=== PATIENT | female | born 1970 | race Caucasian/White ===

== ENCOUNTER 2024-05-01 13:57 | Outpatient (AMB) | payer OTHER, SELFPAY ==
--- NOTE | 2024-05-01 14:00 | MHC.PC.OV ---
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) Intake Note: New patient visit Blade Grinder Required: No Allergies Milk Containing Products (Dairy) Allergy (Verified 05/01/24 14:14) oral tingling adhesive bandage Allergy (Unknown, Uncoded 05/01/24 14:14) Unknown Tobacco use date assessed: 05/01/24 Dental Screening Dental Screen Date: 05/01/24 Did you have a dental visit in the last 12 months?: Yes Did you have a dental problem in the last 6 months where you did not have access to dental care?: No Was dental information given to patient?: Patient has dentist HPI HPI Comments History of Present Illness Details This is a 53-year-old female with a past medical history of anemia, hepatic steatosis and hyperlipidemia presenting to [facility] care. She transferred from my panel at [facility]. She got in January up in the [facility]. Her children are doing well. The patient was referred to Gastroenterology in 08/14/2023 when she presented for dysphagia and GERD. She also had a liver ultrasound and lab work including testing for H pylori. She notices improvement of symptoms when she has taken Nexium. She has not been taking it consistently. She drinks 1 glass of wine 5 nights per week. She does not smoke. She denies unexplained weight loss. She had an endoscopy scheduled, but she canceled it because she was transferring to our practice here. She takes NSAIDs, but she does not use them regularly. Her last colonoscopy and endoscopy were in her 30s when she was evaluated for GERD. She has a mammogram scheduled at [facility] in May. She is up to date with gynecological examss. She is snoring and having nonrestorative sleep and has woken herself up feeling like she is choking. Her children can hear her snoring from their bedrooms. She has never a sleep study. She endorses headaches in the morning. She is exercising, and she is trying to follow a low-carbohydrate diet. She mentions menopause today, and she is going to discuss her symptoms related to this with her swim coach. We discussed weight loss medication, GLP 1, but it is deferred today given her pre-existing GI symptoms that need evaluation. The patient saw Cardiology in the past for evaluation of palpitations. Patient says that they did multiple tests including a Holter monitor which came back fine. She stopped taking THC gummies which she had been using for sleep, and she has not had another episode. ROS: Constitutional: No fevers, chills or unexplained weight loss. +fatigue. Respiratory: No shortness of breath, cough or sputum production. Cardiovascular: No chest pain, no pedal edema. Gastrointestinal: No nausea, vomiting, anorexia, blood in stools or diarrhea. No abdominal pain. Genitourinary: No dysuria, hematuria, urinary frequency. Neurologic: No headache, dizziness, syncope Psychiatric: No depression or anxiety. No SI/HI. Physical exam: Constitutional: Alert, in no distress. Ear, Nose and Throat: Canals clear. TMs normal. Normal nasal mucosa. No nasal discharge. No oral lesions. Neck: Supple, Full range of motion. No lymphadenopathy. Respiratory: Clear to auscultation. Cardiovascular: S1 S2 regular. No murmurs. 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 1. Little interest or pleasure in doing things: not at all 2. Feeling down, depressed, or hopeless: not at all 3. Trouble falling or staying asleep, or sleeping too much: several days 4. Feeling tired or having little energy: several days 5. Poor appetite or overeating: not at all 6. Feeling bad about yourself - or that you are a failure or have let yourself or your family down: not at all 7. Trouble concentrating on things, such as reading the newspaper or watching television: not at all 8. Moving or speaking so slowly that other people could have noticed. Or the opposite - being so fidgety or restless that you have been moving around a lot more than usual: not at all 9. Thoughts that you would be better off or of hurting yourself in some way: not at all Total score: 2 Source: Developed by Drs. Marquise Sheppard, Diana Batista, Efraín Augustine and colleagues, with an educational fady from [employer] Thrive Questionnaire Date Thrive assessed: 04/24/24 I am a: Patient What is your living situation today?: I have a steady place to live Within the past 12 months, did the food you bought not last and you didn't have the money to get more?: Never true Within the past 12 months, did you worry whether your food would run out before you got money to buy more?: Never true Do you have trouble paying for medicines?: No Do you have trouble getting transportation to medical appointments?: No Do you have trouble paying your heating and electricity bill?: No Do you have trouble taking care of your child, family member or friend?: No Do you have trouble with day-to-day activities such as bathing, preparing meals, shopping, managing finances, etc.?: No Are you currently unemployed and looking for a job?: No Are you interested in more education?: No Please select the resources that you would like help with: None Currently or been in a relationship where the following occur: No concerns reported THRIVE Score: 0 AUDIT C Alcohol Use Questionnaire (AUDIT-C) 1. How often do you have a drink containing alcohol?: 2-4 times a month 2. How many drinks containing alcohol do you have on a typical day when you are drinking?: 1 or 2 3. How often do you have six or more drinks on one occasion?: Never Total Score: 2 HAILEY-7 AMB Questionnaire HAILEY-7 Feeling nervous, anxious, or on edge: 1 = Several days Not being able to stop or control worryin = Not at all Worrying too much about different things: 0 = Not at all Trouble relaxin = Several days Being so restless that it is hard to sit still: 0 = Not at all Becoming easily annoyed or irritable: 0 = Not at all Feeling afraid as if something awful might happen: 0 = Not at all Total HAILEY-7 score (0-4 normal; 5-9 mild; 10-14 moderate; 15-21 severe): 2 Source: Developed by Drs. Marquise Sheppard, Diana Batista, Efraín Augustine and colleagues, with an educational fady from [employer]. Physical exam (Primary Care) Vital Signs: Last Vital Signs Pulse 67 05/01/24 14:06 BP 122/72 05/01/24 14:06 Pulse Ox 98 05/01/24 14:06 Oxygen Delivery Method Room Air 05/01/24 14:06 BMI result Body Mass Index 29.7 Tobacco/Smoking Status: Tobacco use Status Tobacco use date assessed 05/01/24 05/01/24 14:11 Patient Tobacco Use Status Former Tobacco user 05/01/24 14:11 PHQ-9: PHQ-9 Score PHQ-9: Total score 2 05/01/24 14:11 Thrive Assessment: Date of Thrive Assessment Date Thrive assessed 04/24/24 05/01/24 14:11 Currently or been in a relationship where the following occur: No concerns reported Coding Level of Care Code Est Pt Level 4 (09986) Complex EM visit Add On G2211 Diagnoses Non-restorative sleep G47.8 Dysphagia R13.10 Assessment & Plan Assessment & Plan (1) Non-restorative sleep: Code(s): G47.8 - Other sleep disorders Category: Medical (2) Dysphagia: Code(s): R13.10 - Dysphagia, unspecified Category: Medical Plan Home sleep study ordered for evaluation of possible sleep apnea. Continue efforts at weight loss. She will also trial stopping alcohol. Refer to Gastroenterology. She is overdue for screening colonoscopy and needs to be considered for endoscopy for chronic dysphagia. Symptoms have improved with occasional PPI use. Sent Nexium to take daily. She will have fasting labs completed prior to a physical exam. Orders: Orders RT home sleep study Today G47.8 - Other sleep disorders Lipid Panel Today E78.5 - Hyperlipidemia, unspecified, G47.8 - Other sleep disorders, R13.10 - Dysphagia, unspecified, Z13.6 - Encounter for screening for cardiovascular disorders Comprehensive Met. Panel Today G47.8 - Other sleep disorders, R13.10 - Dysphagia, unspecified, Z13.6 - Encounter for screening for cardiovascular disorders Complete Blood Count no Diff Today G47.8 - Other sleep disorders, R13.10 - Dysphagia, unspecified, Z13.6 - Encounter for screening for cardiovascular disorders TSH reflex Free T4 Today G47.8 - Other sleep disorders, R13.10 - Dysphagia, unspecified, Z13.6 - Encounter for screening for cardiovascular disorders Referrals Gastroenterology Referral R13.10 - Dysphagia, unspecified, Z12.11 - Encounter for screening for malignant neoplasm of colon Medications: New esomeprazole magnesium (Nexium 24HR) 20 mg PO DAILY 90 caps 0RF
[2024-05-01 14:06] VITALS: BP 122/72; PULSE 67; O2SAT 98; BMI 29.7
--- OUTSIDE RECORDS SUMMARY | 2024-05-01 16:18 | XMS_ITS | Continuity of Care Document ---
Author Organization [facility], _[facility] Address [address] [place] [address] Assessment No assessment recorded. Plan of Treatment Reminders Order Date Submit Date Provider Last Modified By Organization Details Last Modified Time Details Appointments None recorded. Lab rapid flu (A+B) 2023 [email or web address] _[facility], [address] [place], [phone], 12:07:10 Referral None recorded. Procedures None recorded. Surgeries None recorded. Imaging None recorded. Medication Orders Flonase Sensimist 27.5 mcg/actuati on nasal spray,suspe nsion 2023 [id number], [address], [id number], 4 12:07:19 albuterol sulfate HFA 90 mcg/actuati on aerosol inhaler 2023 [facility] #[id number], [address], [id number], 4 12:07:19 amoxicillin 875 mg-potassiu m clavulanate 125 mg tablet 2023 [facility] #[id number], [address], [id number], 12:07:19 Diflucan 150 mg tablet 2023 024 [facility] #[id number], [address], [id number], 12:07:18 Patient TargetsNo targets recorded. Patient Instructions Encounter Date Encounter Id Patient Instructions Last Modified By Organization Details Last Modified Time 04/08/2024 [id number] Acute Sinusitis: Care Instructions [email or web address] Not available 04/08/2024 12:07:10 Reason for Referral None Reported. Results Created Date Observation Date Name Description Value Unit Range Abnormal Flag Note LastModifiedBy Organization Detail LastModifiedTime 04/08/2004/08/2024 rapid flu (A+B) Unknown Analyte negati ve Not Available [id number] [place] [address] [address] [place] [address], [phone], 04/08/2024 11:24:14 04/08/20 24 04/08/2024 rapid flu (A+B) Unknown Analyte negati ve Not Available [facility] [address] [place] [address], [phone], 04/08/2024 11:24:14 04/08/20 24 04/08/2024 rapid flu (A+B) Unknown Analyte YES Not Available [id number] [place] [address] [place] [address], [phone], 04/08/2024 11:24:14 Result Notes None recorded. Problems No Known Problems Procedures Surgical History Date Name Laterality Status Provider Name and Address Organization Details Recorded Time 04/26/19 06 Appendectomy completed LARRY HERNANDEZ PA - [facility] 12/15/2022 15:12:36 repair of stress incontinence by suprapubic sling completed LARRY HERNANDEZ PA - [facility] 12/15/2022 15:12:27 removal of ectopic fetus completed LARRY HERNANDEZ PA - [facility] 12/15/2022 15:12:49 Imaging Results None recorded. Procedure Notes None recorded. Medical Equipment None Reported. Allergies No known drug allergies Medications Name Sig Start Date Stop Date Status Note LastModified by Organization Details LastModified Time prednisone 10 mg tablet 04/08 completed Not Available Not Available Not Available prednisone 20 mg tablet TAKE 2 TABLETS BY MOUTH TWICE DAILY FOR 4 DAYS 12/15 completed Not Available Not Available Not Available miconazole nitrate 2 % vaginal cream INSERT 1 APPLICATO RFUL VAGINALLY EVERY DAY FOR 7 DAYS 12/15 completed Not Available Not Available Not Available Diflucan 150 mg tablet 1 po x 1 prn yeast infection 2023 active Not Available Not Available Not Avai lable cephalexin 500 mg capsule TAKE 1 CAPSULE BY MOUTH EVERY 12 HOURS FOR 7 DAYS 12/15 completed Not Available Not Available Not Available ibuprofen 600 mg tablet TAKE 1 TABLET BY MOUTH FOUR TIMES DAILY 04/08 completed Not Available Not Available Not Available albuterol sulfate HFA 90 mcg/actuati on aerosol inhaler Inhale 2 puffs every 4 hours by inhalatio n route as needed. 2023 active Not Available Not Available Not Avai lable amoxicillin 875 mg-potassiu m clavulanate 125 mg tablet Take 1 tablet every 12 hours by oral route as directed for 10 days. 2023 active Not Available Not Available Not Avai lable nitrofurant oin monohydrate /macrocryst als 100 mg capsule TAKE 1 CAPSULE BY MOUTH TWICE DAILY FOR 5 DAYS WITH FOOD 12/15 completed Not Available Not Available Not Available Flonase Sensimist 27.5 mcg/actuati on nasal spray,suspe nsion Take 1 spray every day by nasal route. 2023 active Not Available Not Available Not Avai lable Vitals Date Recorded Body height Body mass index (BMI) Body weight Body temperature Heart rate Oxygen saturation Oxygen saturation in Arterial blood by Pulse oximetry Systolic blood pressure Diastolic blood pressure Systolic blood pressure Diastolic blood pressure Provider Name and Address Organization Details Last Updated DateTime 4 162.56 cm 30 kg/m2 10073.6 6 g 99 [degF] 87 /min 99 % 99 % 143 mm[Hg] 76 mm[Hg] 143 mm[Hg] 82 mm[Hg] Denice BELTRAN - [facility] 4 11:21:11 Social History Question Answer Notes LastModified by Organizat ion Details LastModified Time What Is Your Level Of Alcohol Consumption? Occasional Information not available 04/08/2024 How Many Times Per Week Do You Consume Alcohol? 1-2 Times Per Week Information not available 04/08/2024 Are You Currently Employed? Yes Information not available 04/08/2024 Have You Had A Flu Shot This Season? No Information not available 04/08/2024 If No, Would You Like A Flu Shot Today? No Information not available 04/08/2024 What Is Your Relationship Status? Information not available 04/08/2024 Are You Passively Exposed To Smoke? No Information no t available 04/08/2024 Do You Use Any Illicit Or Recreational Drugs? No Information not available 04/08/2024 Have You Recently Traveled Abroad? No Information not available 04/08/2024 Do You Or Have You Ever Used Any Other Forms Of Tobacco Or Nicotine? No Information not available 04/08/2024 Sex: Unknown Functional Status None recorded. Mental Status None recorded. Family History Relationship Description Onset Age of this Age Resolved Age Notes LastModified by Organization Details LastModified Time Father No current problems or disability [email or web address] Not available 12/15 15:12:12 Mother No current problems or disability [email or web address] Not available 12/15 15:12:12 Medical History No medical history recorded. Gynecological History Statement/Question Response Date of LMP 03/10/2023 LMP Definite Obstetrics History GPAL:G 0 P 0 0 0 0 Past Encounters Encounter ID Performer Location Encounter Start Date Encounter Closed Date Diagnosis/Indication Diagnosis SNOMED-CT Code Diagnosis ICD10 Code Diagnosis [place] [id number] [place] [address] [address] 04/08/2024 10:38:01 04/08/2024 12:13:32 Acute sinusitis 23338804 J01.90 Given Hx and Sx and PE findings will Rx Antibiotic s and nasal spray will give her an albuterol inhaler to use prn cough Take antibiotic with food. Eat a yogurt daily or take a probiotic while taking the antibiotic . Rx diflucan to use prn - has h/o yeast infections Recommend humidified airrest, fluidstyle nol/ibu prn Patient advised to follow up as needed for worsening symptoms or no improvemen t. Discussed concerning red flags with patient and reasons to follow up in the Emergency Department urgently. Health Concerns Section Related Observation LastModified by Organization Detai ls LastModified Time None Recorded Concern Status LastModified by Organization Details LastModified Time None Recorded Payers Encounter Date Sequence Insurance Name Policy Number Policy [place] Covered Member ID Hamilton Member ID Guarantor Name 04/08/2024 1 [facility] Shital Lópezcarmelina [id number] 1 Shital James Carlo Notes Date Note Type Note Provider Name and Address Organization Details Recorded Time 04/08/2024 text/html Sinus Complaints UCReported bypatient.Notes:53 yo f c/o R side face/sinus pressurefever to [address] [place] [address] y aches took home covid test - negative + h/o asthma as a child. n o meds but uses son's albuterol prnnon smoker No nauseaNo vomitingNo wheezeNo difficulty breathing or respiratory distressNo CP+ congestionNo ear painNo sore throatNo Abdominal painNo diarrheaNo fatigueNo rashNo dizzinessNo recent travelNo known sick contacts tried OTC meds w/o relief Jame Barnes, DO [address] [place], [address], PA - [facility] 04/08/2024 12:07:31 OBGyn Episode No OBEpisode recorded.
== END 2024-05-01 14:46 | disposition home or self-care (01) ==
PROVIDERS: PCP Physician Assistant Medical; Visit Provider Physician Assistant Medical
DX: G47.8 Other sleep disorders (principal); R13.10 Dysphagia, unspecified

== ENCOUNTER → 2024-05-01 13:57 | Outpatient (BNVA) | payer OTHER, SELFPAY | PROVIDERS: PCP Physician Assistant Medical; Visit Provider Physician Assistant Medical ==

== ENCOUNTER 2024-07-03 14:06 | Outpatient (AMB) | payer OTHER, SELFPAY ==
[2024-07-03 14:28] VITALS: BP 104/74; PULSE 87; BMI 30.3
--- NOTE | 2024-07-03 14:28 | A.OFFVIS_ITS ---
Vital Signs 07/03/24 14:28 Height 5 ft 4 in Weight 176 lb 5.917 oz BMI 30.3 BP 104/74 Blood Pressure Location Lt brachial Position Sitting Pulse 87 Intake Visit Reasons: Dysphagia Intake Note: Shital presents in the office as a new patient for dysphagia. CC: She states that she takes a fiber powder with a ground garden of ifeoma and she states that keeps her normal. Issues with swallowing she does not feel like anything is stuck but she states that it happens random and not always when she is eating. She states it will sometimes happen with food but mostly out of nowhere. Commercial Agent Required: No Allergies Milk Containing Products (Dairy) Allergy (Verified 07/03/24 14:28) oral tingling adhesive bandage Allergy (Unknown, Uncoded 07/03/24 14:28) Unknown HPI Comments Details: 53 y.o F with PMH of diverticulitis who is here for dysphagia. Reports started almost a year ago - can occur with any foods even saliva. Makes an effort to swallow but food feels stuck or very slow to go down. No N/V. No unintentional weight loss. No regurgitation. Sometimes has to induce vomiting when food does not go down. Has hx of seasonal allergies and eczema. Barium swallow 05/2023 at [facility] [place]: small hiatal hernia. No reflux. Pt also with hx of acute diverticulitis 2 years ago at [facility]. Was recommended a follow up colo which pt never got around to doing it. No fam hx of colorectal ca. 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 Current occupational exposures/hazards: No Cognitive needs: No Hearing needs: No Vision needs: No Review of Systems Const All systems reviewed & are unremarkable except as noted in HPI and below Physical Exam Vital Signs: Last Vital Signs Pulse 87 07/03/24 14:28 BP 104/74 07/03/24 14:28 BMI result Body Mass Index 30.3 No apparent distress Nonicteric Abdomen soft, nondistended Alert and oriented x3, normal gait Assessment & Plan Assessment & Plan (1) Dysphagia: Code(s): R13.10 - Dysphagia, unspecified Category: Medical (2) Screening for malignant neoplasm of colon: Code(s): Z12.11 - Encounter for screening for malignant neoplasm of colon Category: Medical Plan 1. Dysphagia: DDx includes esophageal web/stricture, EoE, dysmotility. Plan: - EGD to be booked - OK to cont nexium for now - Reviewed instructions to cut up food in small pieces and chew thoroughly 2. CRC screening: Will be set up at the same time as egd. Plan: - PEG prep Rxed and instructions reviewed Follow up after procedures Orders: Orders FL barium swallow Today R13.10 - Dysphagia, unspecified Medications: New peg 3350-electrolytes 236-22.74-6.74 -5.86 gram (Golytely) as per split prep instructions, until fecal effluent is clear 240 mL PO Q10M 4,000 mL 0RF colonoscopy Refilled esomeprazole magnesium (Nexium 24HR) 20 mg PO DAILY 90 caps 0RF Coding Level of Care Code New Pt Level 4 (47913) Diagnoses Dysphagia R13.10 Screening for malignant neoplasm of colon Z12.11
--- OUTSIDE RECORDS SUMMARY | 2024-07-03 16:04 | XMS_ITS | Data Portability ---
Author Organization [facility], [address] Address [address] [place] [address] Assessment No assessment recorded. Plan of Treatment Reminders Order Date Submit Date Provider Last Modified By Organization Details Last Modified Time Details Appointments None recorded. Lab rapid flu (A+B) 2023 024 [email or web address] [facility], [address] [place], [address], 4 12:07:10 rapid strep group A, throat 2022 023 [email or web address] [facility], [address] [place], [address], 3 15:29:28 streptococc us group A, culture, throat 2022 023 [place] [facility], [address] [place] [address], [place], [address], 3 12:06:34 Referral None recorded. Procedures None recorded. Surgeries None recorded. Imaging None recorded. Medication Orders Flonase Sensimist 27.5 mcg/actuati on nasal spray,suspe nsion 2023 024 [id number], [address] [place] [address], [id number], 4 12:07:19 albuterol sulfate HFA 90 mcg/actuati on aerosol inhaler 2023 024 [facility] #[id number], [address] [facility], [facility] [address], [place], [place], [id number], 4 12:07:19 amoxicillin 875 mg-potassiu m clavulanate 125 mg tablet 2023 024 [facility] #55340, [address] [facility] [address], [place], [place], [id number], 4 12:07:19 Diflucan 150 mg tablet 2023 024 [facility] #24655, [address] [facility] [address], [place], [place], [id number], 4 12:07:18 amoxicillin 875 mg-potassiu m clavulanate 125 mg tablet 2022 023 [facility] #[id number], [address] [facility] [address], [place], [place], [id number], 11:21:34 Patient TargetsNo targets recorded. Patient Instructions Encounter Date Encounter Id Patient Instructions Last Modified By Organization Details Last Modified Time 12/15/2022 [id number] ear infection (otitis media): care instructions Not available 12/15/2022 15:30:17 sore throat: car e instructions Not available 12/15/2022 15:29:27 04/08/2024 [id number] Acute Sinusitis: Care Instructions [email or web address] Not available 04/08/2024 12:07:10 Reason for Referral None Reported. Results Created Date Observation Date Name Description Value Unit Range Abnormal Flag Note LastModifiedBy Organization Detail LastModifiedTime 12/16/1912/18/2022 BETA STREP GP A CULTU RE beta strep gp A culture NEGATI VE Refer ence Range : Negat darlene Not Available [facility] ([facility]) [address] [facility], [place], [address], 12/18/2022 12:06:34 12/16/19 23 12/15/2022 rapid strep group A, throa t Unknown Analyte negati ve Not Available [facility] [address] [place] [address], [phone], 12/15/2022 15:13:07 04/08/20 24 04/08/2024 rapid flu (A+B) Unknown Analyte negati ve Not Available [facility] [address] [address] [place] [address], [phone], 04/08/2024 11:24:14 04/08/20 24 04/08/2024 rapid flu (A+B) Unknown Analyte negati ve Not Available [facility] [address] [place] [address], [phone], 04/08/2024 11:24:14 04/08/20 24 04/08/2024 rapid flu (A+B) Unknown Analyte YES Not Available [facility] [address] [place] [address], [phone], 04/08/2024 11:24:14 Result Notes None recorded. Problems No Known Problems Procedures Surgical History Date Name Laterality Status Provider Name and Address Organization Details Recorded Time 04/26/19 06 Appendectomy completed [facility] - [facility] 12/15/2022 15:12:36 repair of stress incontinence by suprapubic sling completed [facility] - [facility] 12/15/2022 15:12:27 removal of ectopic fetus completed [facility] - [facility] 12/15/2022 15:12:49 Imaging [...] height Body mass index (BMI) Body weight Oxygen saturation Oxygen saturation in Arterial blood by Pulse oximetry Heart rate Respiratory rate Body temperature Systolic blood pressure Diastolic blood pressure Provider Name and Address Organization Details Last Updated DateTime 3 162.56 cm 27.5 kg/m2 13218.7 8 g 99 % 99 % 77 /min 19 /min 98.5 [degF] 124 mm[Hg] 80 mm[Hg] LARRY HERNANDEZ PA - [facility] 3 15:11:31 Date Recorded Body height Body mass index (BMI) Body weight Body temperature Heart rate Oxygen saturation Oxygen saturation in Arterial blood by Pulse oximetry Systolic blood pressure Diastolic blood pressure Systolic blood pressure Diastolic blood pressure Provider Name and Address Organization Details Last Updated DateTime 4 162.56 cm 30 kg/m2 27984.6 6 g 99 [degF] 87 /min 99 % 99 % 143 mm[Hg] 76 mm[Hg] 143 mm[Hg] 82 mm[Hg] Denice Valdez PA - [facility] 11:21:11 Social History Question Answer Notes LastModified [...] SNOMED-CT Code Diagnosis ICD10 Code Diagnosis Note [email or web address] [address] 08/06/2018 13:48:14 08/06/2018 16:00:50 [id number] Rosanna Murray NP [id number] [address] 12/15/2022 14:53:20 12/15/2022 15:37:32 Acute pharyngitis [id number] J02.9 Based on your Presentati on, Exam, and Lab Testing you are being diagnosed with Pharyngiti s. Your Rapid Strep Test was Negative. Most likely your sore throat is being caused by a virus, post nasal drip, or silent acid reflux. I am going to send a Throat Culture to the lab for you to make sure you don't have a different form of strep in your throat. This will take about 72 hours for that result to return. We will contact you if it positive - if for some reason you don't get a copy of your results or hear from us - please contact our office. I am going to prescribe you and antibiotic to cover this infection. Please be sure to complete the full course of this antibiotic to prevent antibiotic resistance . It is also important to complete this antibiotic because this infection is what causes Scarlet Fever/Rheu matic Heart Disease. Antibiotic s will typically take 4-5 days to start to work with symptom improvemen t. The following are my other recommenda tions to help with symptoms and is important for this diagnosis: 1. Do not share any food or drinks - strep is passed through direct saliva exchange (NOT IN THE AIR)2. Change your toothbrush in 3-4 days so that you don't re-infect yourself after you complete the antibiotic .3. Take Ibuprofen or Tylenol if you do not have any allergies to these medication s. If you take a blood thinner you should not take NSAIDS like Ibuprofen. These medication will help with the inflammati on in your respirator y tract which should help the cough. (I would alternate between Tylenol 650 mg and your Ibuprofen 600 mg every 4 hours)4. Do not take any Cold Medication s that have a Decongesta nt in it - this will dry out your throat and make the sore throat worse.5. Drinking Hot Tea with honey can help coat and soothe your throat.6. You would be considered contagious for the next 24-48 hours, or until fever resolves. I would be seen again if you develop any of the following symptoms.1 . Fever > 101.02. Stiff neck - where you can't turn your neck3. Trouble swallowing your saliva - drooling4. Swelling of a lymph node in your throat that is painful to touch5. Difficulty breathing6 . Severe Headache Thank you for using [facility] today, please feel free to contact our office if you have any questions or concerns. Acute otitis media 95997 03 H66.93 Acute bila teral otitis media [id number] H66.93 Based on your Presentati on, Exam, and Lab Testing you are being diagnosed with otitis media I am going to prescribe you and antibiotic to cover this infection. Please be sure to complete the full course of this antibiotic to prevent antibiotic resistance . It is also important to complete this antibiotic because this infection is what causes Scarlet Fever/Rheu matic Heart Disease. Antibiotic s will typically take 4-5 days to start to work with symptom improvemen t. The following are my other recommenda tions to help with symptoms and is important for this diagnosis: 1. Take Ibuprofen or Tylenol if you do not have any allergies to these medication s. If you take a blood thinner you should not take NSAIDS like Ibuprofen. These medication will help with the inflammati on in your respirator y tract which should help the cough. (I would alternate between Tylenol 650 mg and your Ibuprofen 600 mg every 4 hours)2. Do not take any Cold Medication s that have a Decongesta nt in it - this will dry out your throat and make the sore throat worse.3. Drinking Hot Tea with honey can help coat and soothe your throat. I would be seen again if you develop any of the following symptoms.1 . Fever > 101.02. Stiff neck - where you can't turn your neck3. Trouble swallowing your saliva - drooling4. Swelling of a lymph node in your throat that is painful to touch5. Difficulty breathing6 . Severe Headache Thank you for using [facility] today, please feel free to contact our office if you have any questions or concerns. [id number] Jame Barnes DO [address] [address] 04/08/2024 10:38:01 04/08/2024 12:13:32 Acute sinusitis [id number] J01.90 Given Hx and Sx and PE [...] by Organization Details LastModified Time None Recorded Advance Directives Directive None Recorded Payers Encounter Date Sequence Insurance Name Policy Number Policy [place] Covered Member ID Hamilton Member ID Guarantor Name 08/06/2018 1 [id number] Shital James Carlo [id number] Shital Galvezasseur 12/15/2022 1 [facility] [id number] Shital Ramirez Carlo [id number] Shital Ramirez Carlo 04/08/2024 1 [facility] Shital Pierre [id number] Shital Matos Notes Date Note Type Note Provider Name and Address Organization Details Recorded Time 3 text/html Sore throatReported bypatient.Source of patient informationInformation obtained from patient; Patient arrived at Urgent Care ambulatory Location:throat Severity:moderate Quality:hurts to swallow Onset/Timin days Associated Symptoms:no cough; no sputum production; no shortness of breath; no wheezing; no sinus pain; no vomiting; no nausea;hoarseness Context:no foreign travel; non-smoker;sick contact Modifying Factors:OTC medicationNotes:sore thoat x3 days pt states roof of mouth feels sore, has been swimming in river the past week , left ear pain as well Rosanna Murray NP [address] [place], [address], [place] - [facility] 12/15/2022 15:36:47 4 text/html Sinus Complaints UCReported bypatient.Notes:53 yo f c/o R side face/sinus pressurefever to 101chillsHAcoughbody aches took home covid test - negative + h/o asthma as a child. n o meds but uses son's albuterol prnnon smoker No nauseaNo vomitingNo wheezeNo difficulty breathing or respiratory distressNo CP+ congestionNo ear painNo sore throatNo Abdominal painNo diarrheaNo fatigueNo rashNo dizzinessNo recent travelNo known sick contacts tried OTC meds w/o relief Jame Barnes, DO [address], [place], [address], [place] - [facility] 04/08/2024 12:07:31 OBGyn Episode No OBEpisode recorded.
--- OUTSIDE RECORDS SUMMARY | 2024-07-03 16:04 | XMS_ITS | Clinical Summary ---
Author Organization [facility] Address [address] [place] [address] Care Team Providers Care Content Strategist Name Role Phone Unavailable Primary Care Provider Unavailabl e Social History Tobacco Use Types Packs/Day Years Used Date Smoking Tobacco: Never Assessed Sex and Gender Information Value Date Recorded Sex Assigned at Not on file Gender Identity Not on file Sexual Orientation Not on file Plan of Treatment Health Maintenance Due Date Last Done Comments Hepatitis C Virus Screening 1970 HIV Screening 11/23/1984 DTaP/Tdap/Td Vaccines (1 - Tdap) 11/23/1990 Hepatitis B Vaccines (1 of 3 - 19+ 3-dose series) 11/23/1990 Pneumococcal Vaccines 50+ (1 of 1 - PCV) 11/23/2021 Zoster (Shingles) Vaccine (1 of 2) 11/23/2021 COVID-19 Vaccine ( - 2023-2 5 season) 2023 Pneumococcal Vaccine: Pediat aileen (0-5 Years) and At-Risk Patients (6 to 49 Years) Aged Out No longer eligible b ased on patient's age to complete this topic
== END 2024-07-04 08:59 | disposition home or self-care (01) ==
PROVIDERS: PCP Physician Assistant Medical; Visit Provider Internal Medicine
DX: R13.10 Dysphagia, unspecified (principal); Z12.11 Encounter for screening for malignant neoplasm of colon
CPT/HCPCS: 99204

== ENCOUNTER → 2024-07-03 14:06 | Outpatient (BNVA) | payer OTHER, SELFPAY | PROVIDERS: PCP Physician Assistant Medical; Visit Provider Internal Medicine ==

== ENCOUNTER 2024-07-13 09:06 | Outpatient (REF) | payer OTHER, SELFPAY ==
--- NOTE | ~2024-07-13 | XR_ITS ---
EXAMINATION: XR CERVICAL SPINE CLINICAL INFORMATION: M54.12 - Radiculopathy, cervical region COMPARISON: None available. TECHNIQUE: 6 views of the cervical spine, inclusive of flexion and extension views, were obtained. FINDINGS: Craniocervical junction is intact. Marginal osteophyte formation and endplate sclerosis decreased intervertebral disc height, C5-6 and C6-7 levels. Grade 1 anterolisthesis C3-4 and C4-5 levels. Grade 1 retrolisthesis C5-6 level. Reverse curvature apex at C5-6. Bilateral neural neuroforamina stenosis secondary to marginal osteophyte formation at C5-6. Upper airways patent. No lytic or blastic lesions. XR/XR cervical spine 5V IMPRESSION: Multilevel spondylosis C5-6 and C6-7 levels resulting in bilateral neuroforamina stenosis and C5-6 and reverse curvature. Electronically signed by: Yves Morales MD 07/17/2024 08:29 AM EDT
== END 2024-07-13 09:07 | disposition home or self-care (01) ==
LOC: HO.XRAY 09:06
PROVIDERS: PCP Physician Assistant Medical; Visit Provider Physician Assistant Medical
DX: M54.12 Radiculopathy, cervical region (principal); R29.898 Other symptoms and signs involving the musculoskeletal system
CPT/HCPCS: 72050

== ENCOUNTER 2024-07-13 09:06 | Outpatient (AMB) | payer OTHER, SELFPAY ==
--- NOTE | 2024-07-13 09:09 | A.OFFPC_ITS ---
Vital Signs 07/13/24 09:11 Height 5 ft 4 in Weight 180 lb 4 oz BMI 30.9 BP 102/80 Blood Pressure Location Lt brachial Position Sitting Respiration 12 Pulse 82 Pulse Source Pulse Oximeter Pulse Oximetry (%) 99 Oxygen Delivery Method Room Air Intake Visit Reasons: need new referral chiropractic not helping Intake Note: Referral for neck and back pain, pain left arm going down to the hand. Event Set Up Specialist Required: No Allergies Milk Containing Products (Dairy) Allergy (Verified 07/13/24 09:11) oral tingling adhesive bandage Allergy (Unknown, Uncoded 07/13/24 09:11) Unknown Tobacco use date assessed: 07/13/24 Dental Screening Dental Screen Date: 05/01/24 HPI HPI Comments History of Present Illness Details This is a 53-year-old female with a past medical history of anemia, hepatic steatosis and hyperlipidemia presenting for neck pain. Her symptoms began 2-1/2 months ago. She developed pain on the left side of her neck that radiated down to her forearm and hand. It was associated with numbness in her left 3rd finger as well as tension in her neck muscles. She s tarted treatment with Advil 800 mg every 6-8 hours, ice and heat and stretching, and she has continued to take this for the past 6 or 7 weeks. She then started to see a chiropractor, and she has been going 3 times per week. She has also been doing stretches at home at the direction of the chiropractor. She continues with symptoms. Her pain ranges from mild to moderate. It is currently a 4/10. She continues to have numbness and tingling, but now it also affects the 1st 2nd and 3rd fingers of the left hand. She has difficulty buttoning her shirts. Patient denies specific injury, but she was doing a lot of planking exercises as part of her normal routine leading up to this. She has trouble trying to bend her neck down. ROS: Constitutional: No unexplained weight loss, fever, chills or night sweats. Eyes: No vision changes, blurry vision, double vision, eye pain, eye redness, eye discharge. Respiratory: No shortness of breath Cardiovascular: No chest pain, chest pressure or chest discomfort Neurologic: No headache, dizziness, syncope or tremor Musculoskeletal: See HPI Skin: No rash or swelling Physical exam: Constitutional: Alert, in no distress.. Eyes: Pupils are equal, round and reactive to light. Extraocular muscles intact. Respiratory: Clear to auscultation. Cardiovascular: S1 S2 regular. No murmurs. Neurologic: Moves all extremities spontaneously Musculoskeletal: Tender C6-7 midline spine and left upper trap and left paraspinal muscles. Left upper trap muscles firm to palpation. Left hand assessment expert 4/5 compared to 5/5 on the right. Otherwise left upper extremity strength is 5/5 bilaterally. Full range of motion of the upper extremities. Patient has decreased range of motion with flexion and extension movements of the cervical spine. They are also painful for the patient to perform. Extremities: Warm and well perfused. No clubbing, cyanosis or edema. 3+ radial pulses bilaterally. Psychiatric: Normal mood and affect [facility] Medical History (Updated 07/13/24 @ 09:32 by RUBY Villanueva) Weakness of left hand Cervical radiculopathy Morning headache Snoring Non-restorative sleep Screening for malignant neoplasm of colon Dysphagia Surgical History (Updated 07/03/24 @ 14:29 by THIEN Mendez) Hx of colonoscopy History of esophagogastroduodenoscopy (EGD) Social History Housing: House Patient Tobacco Use Status: Former Tobacco user Years Smoked: college years Second Hand Smoke Exposure: No service: No Current occupational status: employed 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 Current occupational exposures/hazards: No Cognitive needs: No Hearing needs: No Vision needs: No Questionnaire Thrive Questionnaire Date Thrive assessed: 05/01/24 I am a: Patient What is your living situation today?: I have a steady place to live Within the past 12 months, did the food you bought not last and you didn't have the money to get more?: Never true Within the past 12 months, did you worry whether your food would run out before you got money to buy more?: Never true Do you have trouble paying for medicines?: No Do you have trouble getting transportation to medical appointments?: No Do you have trouble paying your heating and electricity bill?: No Do you have trouble taking care of your child, family member or friend?: No Do you have trouble with day-to-day activities such as bathing, preparing meals, shopping, managing finances, etc.?: No Are you currently unemployed and looking for a job?: No Are you interested in more education?: No Please select the resources that you would like help with: None Currently or been in a relationship where the following occur: No concerns reported THRIVE Score: 0 Physical exam (Primary Care) Vital Signs: Last Vital Signs Pulse 82 07/13/24 09:11 Resp 12 07/13/24 09:11 BP 102/80 07/13/24 09:11 Pulse Ox 99 07/13/24 09:11 Oxygen Delivery Method Room Air 07/13/24 09:11 BMI result Body Mass Index 30.9 Tobacco/Smoking Status: Tobacco use Status Tobacco use date assessed 07/13/24 07/13/24 09:14 Patient Tobacco Use Status Former Tobacco user 07/13/24 09:14 Thrive Assessment: Date of Thrive Assessment Date Thrive assessed 05/01/24 07/13/24 09:14 Currently or been in a relationship where the following occur: No concerns re ported Coding Level of Care Code Est Pt Level 4 (36402) Complex EM visit Add On G2211 Diagnoses Cervical radiculopathy M54.12 Weakness of left hand R29.898 Assessment & Plan Assessment & Plan (1) Cervical radiculopathy: Code(s): M54.12 - Radiculopathy, cervical region Category: Medical (2) Weakness of left hand: Code(s): R29.898 - Other symptoms and signs involving the musculoskeletal system Category: Medical Plan Patient has continued pain and radiculopathy despite more than 6 weeks of conservative management including treatment with NSAID, heat, ice, stretching and seeing the chiropractor. I am concerned that she may have nerve compression from a herniated disc or bone spur. Ordered x-ray and MRI of the cervical spine for further evaluation. Patient does not want any medications that make her drowsy. She will try meloxicam 15 mg daily as needed with food. Avoid other NSAIDs. She can take Tylenol 500 to a 1000 mg 3 times a day as needed for pain. Follow up will be determined based on test results. Orders: Orders MR cervical spine wo con Today M54.12 - Radiculopathy, cervical region, R29.898 - Other symptoms and signs involving the musculoskeletal system XR cervical spine 5V Today M54.12 - Radiculopathy, cervical region, R29.898 - Other symptoms and signs involving the musculoskeletal system Medications: New meloxicam 15 mg PO DAILY PRN 30 tabs 0RF pain
[2024-07-13 09:11] VITALS: BP 102/80; PULSE 82; RESP 12; O2SAT 99; BMI 30.9
--- OUTSIDE RECORDS SUMMARY | 2024-07-13 09:42 | XMS_ITS | Data Portability ---
Author Organization [facility], [address] Address [address] [place] [address] Assessment No assessment recorded. Plan of Treatment Reminders Order Date Submit Date Provider Last Modified By Organization Details Last Modified Time Details Appointments None recorded. Lab rapid flu (A+B) [email or web address], [address] [place], [address], 4 12:07:10 rapid strep group A, throat 2022 [email or web address] _[facility], [address] [place], [address], 3 15:29:28 streptococc us group A, culture, throat 2022 023 [place] [facility], [address] [place] [address], [place], [address], 3 12:06:34 Referral None recorded. Procedures None recorded. Surgeries None recorded. Imaging None recorded. Medication Orders Flonase Sensimist 27.5 mcg/actuati on nasal spray,suspe nsion 2023 024 [facility]15881, [address] [place] [address], [id number], 4 12:07:19 albuterol sulfate HFA 90 mcg/actuati on aerosol inhaler 2023 024 [facility] #76561, [address] [facility], [facility] 1, [place], [place], [phone], 4 12:07:19 amoxicillin 875 mg-potassiu m clavulanate 125 mg tablet 2023 024 [facility] #39902, [address] [facility] 1, [place], [place], [id number], 4 12:07:19 Diflucan 150 mg tablet 2023 024 [facility] #85602, [address] [facility] 1, [place], [place], [id number], 4 12:07:18 amoxicillin 875 mg-potassiu m clavulanate 125 mg tablet 2022 023 [facility] #46750, [address] [facility] 1, [place], [place], [id number], 11:21:34 Patient TargetsNo targets recorded. Patient Instructions Encounter Date Encounter Id Patient Instructions Last Modified By Organization Details Last Modified Time 12/15/2022 [id number] ear infection (otitis media): care instructions Not available 12/15/2022 15:30:17 sore throat: car e instructions Not available 12/15/2022 15:29:27 04/08/2024 [id number] Acute Sinusitis: Care Instructions [email or web address] Not available 04/08/2024 12:07:10 Reason for Referral None Reported. Results Created Date Observation Date Name Description Value Unit Range Abnormal Flag Note LastModifiedBy Organization Detail LastModifiedTime 12/16/1912/18/2022 BETA STREP GP A CULTU RE beta strep gp A culture NEGATI VE Refer ence Range : Negat darlene Not Available [facility] ([facility]) [address] [facility], [place], [address], 12/18/2022 12:06:34 12/16/19 23 12/15/2022 rapid strep group A, throa t Unknown Analyte negati ve Not Available [facility] [address] [place] [address], [address], 12/15/2022 15:13:07 04/08/20 24 04/08/2024 rapid flu (A+B) Unknown Analyte negati ve Not Available [facility] [address] [place] [address], [address], 04/08/2024 11:24:14 04/08/20 24 04/08/2024 rapid flu (A+B) Unknown Analyte negati ve Not Available [facility] [address] [place] [address], [address], 04/08/2024 11:24:14 04/08/20 24 04/08/2024 rapid flu (A+B) Unknown Analyte YES Not Available [facility] [address] [place] [address], [phone], 04/08/2024 11:24:14 Result Notes None recorded. Problems No Known Problems Procedures Surgical History Date Name Laterality Status Provider Name and Address Organization Details Recorded Time 04/26/19 06 Appendectomy completed [place] PA - [facility] 12/15/2022 15:12:36 repair of stress incontinence by suprapubic sling completed [place] PA - [facility] 12/15/2022 15:12:27 removal of ectopic fetus completed [place] PA - [facility] 12/15/2022 15:12:49 Imaging [...] Updated DateTime 3 162.56 cm 27.5 kg/m2 10769.7 8 g 99 % 99 % 77 [...] Updated DateTime 4 162.56 cm 30 kg/m2 64511.6 6 g 99 [degF] 87 /min 99 [...] SNOMED-CT Code Diagnosis ICD10 Code Diagnosis Note [id number] [address] [address] 08/06/2018 13:48:14 08/06/2018 16:00:50 [id number] Rosanna Murray [place] [address] [address] 12/15/2022 14:53:20 12/15/2022 15:37:32 Acute pharyngitis [id number] J02.9 Based on your Presentati on, Exam, [...] any questions or concerns. Acute otitis media 44255 03 H66.93 Acute bila teral otitis media 679928288 H66.93 Based on your Presentati on, Exam, [...] if you have any questions or concerns. [id number] [place] [address] [address] 04/08/2024 10:38:01 04/08/2024 12:13:32 Acute sinusitis [id number] J01.90 Given Hx and Sx and PE [...] Hamilton Member ID Guarantor Name 08/06/2018 1 [id number] Shital James Carlo [id number] Shital Galvezasseur 12/15/2022 1 [facility] [id number] Shital Ramirez Carlo [id number] Shital Ramirez Carlo 04/08/2024 1 [facility] Shital Pierre [id number] Shital Matos Notes Date Note Type Note [...] Murray NP [address] [place], [address], [place] - [facility] 12/15/2022 15:36:47 4 [...] Jame Barnes, DO [address], [place], [address], [place] - [facility] 04/08/2024 12:07:31 OBGyn Episode No OBEpisode recorded.
--- OUTSIDE RECORDS SUMMARY | 2024-07-13 09:42 | XMS_ITS | Clinical Summary ---
Author Organization [facility] Address [address] [place] [address] Care Team Providers Care Machine Shop Specialist Name Role Phone Unavailable Primary Care Provider [...]
== END 2024-07-13 10:36 | disposition home or self-care (01) ==
LOC: HO.HMCFM 09:07
PROVIDERS: PCP Physician Assistant Medical; Visit Provider Physician Assistant Medical
DX: M54.12 Radiculopathy, cervical region (principal); R29.898 Other symptoms and signs involving the musculoskeletal system

== ENCOUNTER → 2024-07-13 13:27 | Outpatient (BNV) | payer OTHER, SELFPAY | PROVIDERS: PCP Physician Assistant Medical; Visit Provider Radiology Diagnostic Radiology | DX: M54.12 Radiculopathy, cervical region (principal) | CPT/HCPCS: 72050 ==

== ENCOUNTER 2024-07-29 10:36 | Outpatient (REF) | payer OTHER, SELFPAY ==
--- OUTSIDE RECORDS SUMMARY | 2024-07-29 10:38 | XMS_ITS | Clinical Summary ---
Author Organization [facility] Address [address] [place] [address] Care Team Providers Care Lining Cleaner Name Role Phone Unavailable Primary Care Provider [...]
--- OUTSIDE RECORDS SUMMARY | 2024-07-29 10:38 | XMS_ITS | Data Portability ---
Author Organization [facility], [address] Address [address] [place] [address] Assessment No assessment recorded. Plan of Treatment Reminders Order Date Submit Date Provider Last Modified By Organization Details Last Modified Time Details Appointments None recorded. Lab rapid flu (A+B) 2023 024 [email or web address] _[facility], [address] [place], [address], 4 12:07:10 rapid strep group A, throat 2022 023 [email or web address] _[facility], [address] [place], [address], 3 15:29:28 streptococc us group A, culture, throat 2022 023 [place] [facility], [address] [place] [address], [place], [address], 3 12:06:34 Referral None recorded. Procedures None recorded. Surgeries None recorded. Imaging None recorded. Medication Orders Flonase Sensimist 27.5 mcg/actuati on nasal spray,suspe nsion 2023 024 [facility] #27242, [address] [place] [address], [id number], 4 12:07:19 albuterol sulfate HFA 90 mcg/actuati on aerosol inhaler 2023 024 [facility] #31524, [address] [facility], [facility] 1, [place], [place], [id number], 4 12:07:19 amoxicillin 875 mg-potassiu m clavulanate 125 mg tablet 2023 024 [facility] #59632, [address] [facility] 1, [place], [place], [id number], 4 12:07:19 Diflucan 150 mg tablet 2023 024 [facility] #62003, [address] [facility] 1, [place], [place], [id number], 4 12:07:18 amoxicillin 875 mg-potassiu m clavulanate 125 mg tablet 2022 023 [facility] #14948, [address] [facility] 1, [place], [place], [id number], 11:21:34 Patient TargetsNo targets recorded. Patient Instructions Encounter Date Encounter Id Patient Instructions Last Modified By Organization Details Last Modified Time 12/15/2022 [id number] ear infection (otitis media): care instructions Not available 12/15/2022 15:30:17 sore throat: car e instructions Not available 12/15/2022 15:29:27 04/08/2024 [id number] Acute Sinusitis: Care Instructions [email or web address] Not available 04/08/2024 12:07:10 Reason for Referral None Reported. Results Created Date Observation Date Name Description Value Unit Range Abnormal Flag Note LastModifiedBy Organization Detail LastModifiedTime 12/16/1912/18/2022 BETA STREP GP A CULTU RE beta strep gp A culture NEGATI VE Refer ence Range : Negat darlene Not Available [facility] ([facility]) [address] [facility], [place], [address], 12/18/2022 12:06:34 12/16/19 23 12/15/2022 rapid strep group A, throa t Unknown Analyte negati ve Not Available [facility] [address] [place] [address], [address], 12/15/2022 15:13:07 04/08/20 24 04/08/2024 rapid flu (A+B) Unknown Analyte negati ve Not Available [facility] [address] [place] [address], [address], 04/08/2024 11:24:14 04/08/20 24 04/08/2024 rapid flu (A+B) Unknown Analyte negati ve Not Available [facility] [address] [place] [address], [address], 04/08/2024 11:24:14 04/08/20 24 04/08/2024 rapid flu (A+B) Unknown Analyte YES Not Available [facility] [address] [place] [address], [phone], 04/08/2024 11:24:14 Result Notes None recorded. Problems No Known Problems Procedures Surgical History Date Name Laterality Status Provider Name and Address Organization Details Recorded Time 04/26/19 06 Appendectomy completed [employer] PA - [facility] 12/15/2022 15:12:36 repair of stress incontinence by suprapubic sling completed [employer] PA - [facility] 12/15/2022 15:12:27 removal of ectopic fetus completed [employer] PA - [facility] 12/15/2022 15:12:49 Imaging [...] Updated DateTime 3 162.56 cm 27.5 kg/m2 44977.7 8 g 99 % 99 % 77 [...] Updated DateTime 4 162.56 cm 30 kg/m2 73597.6 6 g 99 [degF] 87 /min 99 [...] SNOMED-CT Code Diagnosis ICD10 Code Diagnosis Note [id number] [address] [address] 08/06/2018 13:48:14 08/06/2018 16:00:50 [id number] Rosanna Murray NP [address] [address] 12/15/2022 14:53:20 12/15/2022 15:37:32 Acute pharyngitis 108388782 J02.9 Based on your Presentati on, Exam, [...] any questions or concerns. Acute otitis media 36793 03 H66.93 Acute bila teral otitis media 500474504 H66.93 Based on your Presentati on, Exam, [...] if you have any questions or concerns. [id number] [place] [address] [address] 04/08/2024 10:38:01 04/08/2024 12:13:32 Acute sinusitis [id number] J01.90 Given Hx and Sx and PE [...] ID Guarantor Name 08/06/2018 1 [id number] Shital James Carlo [id number] Shital Galvezasseur 12/15/2022 1 [facility] [id number] Shital Ramirez Carlo [id number] Shital Ramirez Carlo 04/08/2024 1 [facility] Shital Pierre [id number] Shital Matos Notes Date Note Type Note [...] Murray NP [address] [place], [address], [place] - [facility] 12/15/2022 15:36:47 4 [...] Jame Barnes, DO [address], [place], [address], [place] - [facility] 04/08/2024 12:07:31 OBGyn Episode No OBEpisode recorded.
[2024-07-29 11:13] LABS: Hematocrit 38.2 % (37.0-47.0); Hemoglobin 13.3 g/dl (12.0-16.0); Mean Corpuscular HGB Conc 34.8 g/dl (31.0-35.0); Mean Corpuscular Hemoglobin 31.1 pg (27.0-33.0); Mean Corpuscular Volume 89.5 fL (80.0-98.0); Mean Platelet Volume 9.9 fL (9.4-12.3); Platelet Count 275 X10*3/uL (160-400); Red Blood Count 4.27 X10*6/uL (4.20-5.50); Red Cell Distribution Width 12.2 % (11.0-16.0); White Blood Count 11.8 X10*3/uL (4.8-10.8)
[2024-07-29 11:56] LABS: Alanine Aminotransferase 15 U/L (0-31); Albumin Level 4.1 g/dL (3.5-5.0); Alkaline Phosphatase 64 U/L (39-117); Anion Gap 10 (12-20); Aspartate Amino Transferase 21 U/L (5-31); Bilirubin Total 0.6 mg/dL (0.0-1.0); Blood Urea Nitrogen 12 mg/dL (9-16); Calcium 9.3 mg/dL (8.4-10.2); Carbon Dioxide 27 mmol/L (22-29); Chloride 106 mmol/L (96-108); Cholesterol 201 mg/dL (<200); Estimated Glomerular Filt Rate > 60; Glucose Random 103 mg/dL (60-115); HDL Cholesterol 48 mg/dL (>40); LDL Cholesterol Calculated 125 mg/dL (<100); Potassium 4.9 mmol/L (3.3-5.1); Sodium 138 mmol/L (135-145); Total Protein 7.1 g/dL (6.5-8.0); Triglycerides 142 mg/dL (<150)
[2024-07-29 12:10] LABS: TSH reflex Free T4 2.36 uIU/mL (0.32-4.0)
== END 2024-07-29 10:37 | disposition home or self-care (01) ==
LOC: HO.LAB 10:36
PROVIDERS: PCP Physician Assistant Medical; Visit Provider Physician Assistant Medical
DX: Z13.6 Encounter for screening for cardiovascular disorders (principal); E78.5 Hyperlipidemia, unspecified; R13.10 Dysphagia, unspecified; G47.8 Other sleep disorders
CPT/HCPCS: 36415; 80053; 80061; 84443; 85027

== ENCOUNTER → 2024-07-30 19:54 | Outpatient (BNV) | payer OTHER, SELFPAY | PROVIDERS: PCP Physician Assistant Medical; Visit Provider Radiology Diagnostic Radiology | DX: M47.812 Spondylosis without myelopathy or radiculopathy, cervical region (principal); M99.61 Osseous and subluxation stenosis of intervertebral foramina of cervical region | CPT/HCPCS: 72141 ==

== ENCOUNTER 2024-07-30 19:56 | Outpatient (REF) | payer OTHER, SELFPAY ==
--- NOTE | ~2024-07-30 | MR_ITS ---
EXAMINATION: MR CERVICAL SPINE WITHOUT CONTRAST CLINICAL INFORMATION: Other symptoms and signs involving mostly the skeletal system. COMPARISON: Correlated to x-ray dated July 13, 2024 TECHNIQUE: MRI of the cervical spine was obtained using routine sequences without contrast. FINDINGS: Craniocervical junction is intact. No bone marrow STIR signal abnormality. Marginal osteophyte formation and disc desiccation, C5-6 and C6-7 and to a lesser extent C4-5. Reverse curvature apex at C5. There is normal alignment. The cervical spinal cord signal is normal. C2-3: No disc herniation. No neuroforamina stenosis. C3-4: Broad-based disc osteophyte complex formation. No cord compression. No neuroforamina stenosis. C4-5: Broad-based disc osteophyte compresses formation. No cord compression. No neuroforamina stenosis. C5-6: Broad-based disc osteophyte complex formation resulting in spinal cord deformity and flattening without cord signal abnormality. Bilateral neuroforamina stenosis on a multifactorial basis. C6-7: Broad-based disc osteophyte complex formation abutting the cord. Bilateral neuroforamina stenosis on a degenerative basis. C7-T1: No disc herniation. No neuroforamina stenosis. No prevertebral compartment hematoma, mass or fluid collection. Flow-void signal within the main vessels is normal. Left vertebral artery slightly dominant. Nonspecific prominent cervical lymph nodes. MR/MR cervical spine wo con IMPRESSION: Cervical spondylosis C5-6 and C6-7 resulting in central spinal stenosis and cord deformity at C5-6 without cord edema and or myelopathy. Bilateral neuroforamina stenosis C5-6 and C6-7 on a degenerative basis. Electronically signed by: Yves Morales MD 07/31/2024 09:12 AM EDT
--- OUTSIDE RECORDS SUMMARY | 2024-07-30 20:06 | XMS_ITS | Data Portability ---
Author Organization [facility], [address] Address [address] [place] [address] Assessment No assessment recorded. Plan of Treatment Reminders Order Date Submit Date Provider Last Modified By Organization Details Last Modified Time Details Appointments None recorded. Lab rapid flu (A+B) 2023 024 [email or web address] _[facility], [address] [place], [address], 4 12:07:10 rapid strep group A, throat 2022 023 [email or web address] _[facility], [address] [place], [address], 3 15:29:28 streptococc us group A, culture, throat 2022 023 [place] [facility], [address] [place] [address], [place], [address], 3 12:06:34 Referral None recorded. Procedures None recorded. Surgeries None recorded. Imaging None recorded. Medication Orders Flonase Sensimist 27.5 mcg/actuati on nasal spray,suspe nsion 2023 024 [facility] #55280, [address] [place] [address], [id number], 4 12:07:19 albuterol sulfate HFA 90 mcg/actuati on aerosol inhaler 2023 024 [facility] #73028, [address] [facility], [facility] 1, [place], [place], [id number], 4 12:07:19 amoxicillin 875 mg-potassiu m clavulanate 125 mg tablet 2023 024 [facility] #89072, [address] [facility] 1, [place], [place], [id number], 4 12:07:19 Diflucan 150 mg tablet 2023 024 [facility] #98021, [address] [facility] 1, [place], [place], [id number], 4 12:07:18 amoxicillin 875 mg-potassiu m clavulanate 125 mg tablet 2022 023 [facility] #13906, [address] [facility] 1, [place], [place], [id number], 11:21:34 Patient TargetsNo targets recorded. Patient Instructions Encounter Date Encounter Id Patient Instructions Last Modified By Organization Details Last Modified Time 12/15/2022 [id number] ear infection (otitis media): care instructions Not available 12/15/2022 15:30:17 sore throat: car e instructions Not available 12/15/2022 15:29:27 04/08/2024 [id number] Acute Sinusitis: Care Instructions [email or web address] Not available 04/08/2024 12:07:10 Reason for Referral None Reported. Results Created Date Observation Date Name Description Value Unit Range Abnormal Flag Note LastModifiedBy Organization Detail LastModifiedTime 12/16/1912/18/2022 BETA STREP GP A CULTU RE beta strep gp A culture NEGATI VE Refer ence Range : Negat darlene Not Available [facility] ([facility]) [address] [facility], [place], [address], 12/18/2022 12:06:34 12/16/19 23 12/15/2022 rapid strep group A, throa t Unknown Analyte negati ve Not Available [facility] [address] [place] [address], [address], 12/15/2022 15:13:07 04/08/20 24 04/08/2024 rapid flu (A+B) Unknown Analyte negati ve Not Available [facility] [address] [place] [address], [address], 04/08/2024 11:24:14 04/08/20 24 04/08/2024 rapid flu (A+B) Unknown Analyte negati ve Not Available [facility] [address] [place] [address], [address], 04/08/2024 11:24:14 04/08/20 24 04/08/2024 rapid flu (A+B) Unknown Analyte YES Not Available [facility] [address] [place] [address], [phone], 04/08/2024 11:24:14 Result Notes None recorded. Problems No Known Problems Procedures Surgical History Date Name Laterality Status Provider Name and Address Organization Details Recorded Time 04/26/19 06 Appendectomy completed [place] PA - [facility] 12/15/2022 15:12:36 repair of stress incontinence by suprapubic sling completed [place] PA - [facility] 12/15/2022 15:12:27 removal of ectopic fetus completed [place] PA - [facility] 12/15/2022 15:12:49 Imaging [...] Updated DateTime 3 162.56 cm 27.5 kg/m2 89253.7 8 g 99 % 99 % 77 [...] Updated DateTime 4 162.56 cm 30 kg/m2 41082.6 6 g 99 [degF] 87 /min 99 [...] SNOMED-CT Code Diagnosis ICD10 Code Diagnosis Note [id number] [address] [address] 08/06/2018 13:48:14 08/06/2018 16:00:50 [id number] Rosanna Murray NP [address] [address] 12/15/2022 14:53:20 12/15/2022 15:37:32 Acute pharyngitis 489110040 J02.9 Based on your Presentati on, Exam, [...] any questions or concerns. Acute otitis media 43736 03 H66.93 Acute bila teral otitis media 871975462 H66.93 Based on your Presentati on, Exam, [...] if you have any questions or concerns. [id number] [place] [address] [address] 04/08/2024 10:38:01 04/08/2024 12:13:32 Acute sinusitis [id number] J01.90 Given Hx and Sx and PE [...] Hamilton Member ID Guarantor Name 08/06/2018 1 [id number] Shital James Carlo [id number] Shital Galvezasseur 12/15/2022 1 [facility] [id number] Shital Ramirez Carlo [id number] Shital Ramirez Carlo 04/08/2024 1 [facility] Shital Pierre [id number] Shital Matos Notes Date Note Type Note [...] Murray NP [address] [place], [address], [place] - [facility] 12/15/2022 15:36:47 4 [...] Jame Barnes, DO [address], [place], [address], [place] - [facility] 04/08/2024 12:07:31 OBGyn Episode No OBEpisode recorded.
--- OUTSIDE RECORDS SUMMARY | 2024-07-30 20:06 | XMS_ITS | Clinical Summary ---
Author Organization [facility] Address [address] [place] [address] Care Team Providers Care Embedded Software Development Engineer Name Role Phone Unavailable Primary Care Provider [...]
== END 2024-07-30 19:57 | disposition home or self-care (01) ==
LOC: HO.MRI 19:56
PROVIDERS: PCP Physician Assistant Medical; Visit Provider Physician Assistant Medical
DX: R29.898 Other symptoms and signs involving the musculoskeletal system (principal); M54.12 Radiculopathy, cervical region
CPT/HCPCS: 72141

== ENCOUNTER 2024-08-03 08:31 | Outpatient (AMB) | payer OTHER, SELFPAY ==
--- NOTE | 2024-08-03 08:34 | A.OFFPC_ITS ---
Vital Signs 08/03/24 08:53 Height 5 ft 4 in Weight 173 lb 4 oz BMI 29.7 BP 118/82 Blood Pressure Location Rt brachial Position Sitting Pulse 85 Pulse Source Pulse Oximeter Pulse Oximetry (%) 98 Oxygen Delivery Method Room Air Intake Visit Reasons: physical Intake Note: Sully presents in the office today for her annual physical. Outcomes Specialist Required: No Allergies Milk Containing Products (Dairy) Allergy (Verified 08/03/24 08:43) oral tingling adhesive bandage Allergy (Unknown, Uncoded 07/13/24 09:11) Unknown Tobacco use date assessed: 08/03/24 Dental Screening Dental Screen Date: 08/03/24 Did you have a dental visit in the last 12 months?: Yes Did you have a dental problem in the last 6 months where you did not have access to dental care?: No Was dental information given to patient?: Patient has dentist HPI HPI Comments History of Present Illness Details This is a 53-year-old female with a past medical history of anemia, hepatic steatosis, cervical radiculopathy and hyperlipidemia presenting for a physical exam. We reviewed her MRI of the cervical spine on Wednesday which showed multilevel spondylosis and cervical stenosis of the spinal canal. She has been referred to the neuro spine clinic. She has an appointment this Wednesday. She saw Gastroenterology for evaluation of dysphagia and GERD. Patient is on Nexium. Colonoscopy and EGD or scheduled. Sleep study is approved, and she is going to call to schedule this. She has a mammogram scheduled. She has an appointment with [facility] in September to discuss menopausal symptoms. She wants to pursue HRT. The patient saw Cardiology in the past for evaluation of palpitations. Patient says that they did multiple tests including a Holter monitor which came back fine. She stopped taking THC gummies which she had been using for sleep, and she has not had another episode. Her fasting blood sugar was mildly elevated at 103, but her hemoglobin A1c is normal today. She has already lost weight by cutting out most alcohol and carbohydrates. Patient goes to [facility] for skin exams because she has a history of basal cell carcinoma. She requests referral to [facility] to continue care. Referral placed. ROS: Constitutional: No unexplained weight loss, fever, chills or night sweats. Eyes: No vision changes, blurry vision, double vision, eye pain, eye redness, eye discharge. ENT: No hearing loss, sneezing, congestion, runny nose or sore throat. Respiratory: No shortness of breath, cough or sputum production. Cardiovascular: No chest pain, chest pressure or chest discomfort. No palpitations or pedal edema. Gastrointestinal: No anorexia, nausea, vomiting or diarrhea. No abdominal pain or blood in stool. See HPI Genitourinary: No dysuria, hematuria, urinary frequency. Neurologic: No headache, dizziness, syncope. See HPI. Musculoskeletal: Per HPI Hematologic/Lymphatics: No bleeding or bruising. No painful lymph nodes. Skin: No rash or itching. Endocrine: No cold or heat intolerance. No polyuria or polydipsia. Psychiatric: No depression or anxiety. Physical exam: Constitutional: Alert, in no distress. Head: Normocephalic. Eyes: Pupils are equal, round and reactive to light. Extraocular muscles intact. Ear, Nose and Throat: Canals clear. TMs normal. Normal nasal mucosa. No nasal discharge. No oral lesions. Neck: Supple, Full range of motion. No lymphadenopathy. No palpable thyroid masses. Respiratory: Clear to auscultation. Cardiovascular: S1 S2 regular. No murmurs. Gastrointestinal: Abdomen soft, non-tender, non-distended. Normal bowel sounds. No palpable masses. Genitourinary: No costovertebral angle tenderness. Neurologic: No focal neurological deficits. Symmetric patellar reflexes. Skin: No rashes Musculoskeletal: No gross deformities. Normal range of motion. Extremities: Warm and well perfused. No clubbing, cyanosis or edema. 3+ peripheral pulses bilaterally. Psychiatric: Normal mood and affect [facility] Medical History (Updated 08/03/24 @ 13:56 by RUBY Villanueva) Routine physical examination History of basal cell carcinoma Neuroforaminal stenosis of cervical spine Cervical stenosis of spinal canal IFG (impaired fasting glucose) Weakness of left hand Cervical radiculopathy Morning headache Snoring Non-restorative sleep Screening for malignant neoplasm of colon Dysphagia Surgical History (Updated 07/03/24 @ 14:29 by THIEN Mendez) Hx of colonoscopy History of esophagogastroduodenoscopy (EGD) Family History (Updated 08/03/24 @ 08:49 by Angy Long MA) Mother Cancer of the liver and intrahepatic bile ducts Afib FHx: mental illness Father Substance abuse Alcohol abuse Cardiomyopathy Maternal Grandmother Skin cancer Son FHx: mental illness Social History (Updated 08/03/24 @ 08:46 by Angy Long MA) Housing: House Alcohol intake: current Patient Tobacco Use Status: Former Tobacco user Years Smoked: college years e-Cigarette/Vaping Use: Never Used Second Hand Smoke Exposure: No service: No Current occupational status: employed 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 1. Little interest or pleasure in doing things: not at all 2. Feeling down, depressed, or hopeless: not at all 3. Trouble falling or staying asleep, or sleeping too much: more than half the days 4. Feeling tired or having little energy: more than half the days 5. Poor appetite or overeating: not at all 6. Feeling bad about yourself - or that you are a failure or have let yourself or your family down: not at all 7. Trouble concentrating on things, such as reading the newspaper or watching television: several days 8. Moving or speaking so slowly that other people could have noticed. Or the opposite - being so fidgety or restless that you have been moving around a lot more than usual: not at all 9. Thoughts that you would be better off or of hurting yourself in some way: not at all Total score: 5 Depression Screening Interpretation: Positive Depression Screening Follow-up: Other (Pt denies. Symptoms related to menopause.) Depression Screening Done: Yes 26392 - PHQ-9 Billing: Patient declined-do not bill Source: Developed by Drs. Marquise Sheppard, Diana Batista, Efraín Augustine and colleagues, with an educational fady from [employer]. Thrive Questionnaire Date Thrive assessed: 08/03/24 I am a: Patient What is your living situation today?: I have a steady place to live Within the past 12 months, did the food you bought not last and you didn't have the money to get more?: Never true Within the past 12 months, did you worry whether your food would run out before you got money to buy more?: Never true Do you have trouble paying for medicines?: No Do you have trouble getting transportation to medical appointments?: No Do you have trouble paying your heating and electricity bill?: No Do you have trouble taking care of your child, family member or friend?: No Do you have trouble with day-to-day activities such as bathing, preparing meals, shopping, managing finances, etc.?: No Are you currently unemployed and looking for a job?: No Are you interested in more education?: No Please select the resources that you would like help with: None Currently or been in a relationship where the following occur: No concerns reported THRIVE Score: 0 AUDIT C Alcohol Use Questionnaire (AUDIT-C) 1. How often do you have a drink containing alcohol?: 2-4 times a month 2. How many drinks containing alcohol do you have on a typical day when you are drinking?: 1 or 2 3. How often do you have six or more drinks on one occasion?: Never Total Score: 2 Score Reviewed/Action Taken: No HAILEY-7 AMB Questionnaire HAILEY-7 Date HAILEY - 7 assessed: 08/03/24 Feeling nervous, anxious, or on edge: 2 = More than half the days Not being able to stop or control worryin = More than half the days Worrying too much about different things: 2 = More than half the days Trouble relaxin = More than half the days Being so restless that it is hard to sit still: 0 = Not at all Becoming easily annoyed or irritable: 2 = More than half the days Feeling afraid as if something awful might happen: 1 = Several days Total HAILEY-7 score (0-4 normal; 5-9 mild; 10-14 moderate; 15-21 severe): 11 Source: Developed by Drs. Marquise Sheppard, Diana Batista, Efraín Augustine and colleagues, with an educational fady from [employer]. HAILEY-7 Assessment Billing HAILEY-7 Assessment Tool: HAILEY-7 Assessment 23796 ACT Questionnaire In the past 4 weeks, how much of the time did your asthma keep you from getting as much done at work, school or at home?: Some of the time During the past 4 weeks, how often have you had shortness of breath?: 1-2 times a week During the past 4 weeks, how often did your asthma symptoms wake you up at night or earlier than usual in the morning?: Not at all During the past 4 weeks, how often have you had to use your rescue inhaler or nebulizer medication?: 1-2 times a week How would you rate your asthma control during the past 4 weeks?: Well controlled ACT Interpretation: Positive Score: 18 Physical exam (Primary Care) Vital Signs: Last Vital Signs Pulse 85 08/03/24 08:53 BP 118/82 08/03/24 08:53 Pulse Ox 98 08/03/24 08:53 Oxygen Delivery Method Room Air 08/03/24 08:53 BMI result Body Mass Index 29.7 Tobacco/Smoking Status: Tobacco use Status Tobacco use date assessed 08/03/24 08/03/24 08:58 Patient Tobacco Use Status Former Tobacco user 08/03/24 08:46 e-Cigarette/Vaping Use Never Used 08/03/24 08:55 PHQ-9: PHQ-9 Score PHQ-9: Total score 5 08/03/24 09:52 Depression Screening Interpretation: Positive Depression Screening Follow-up: Other (Pt denies. Symptoms related to menopause.) Thrive Assessment: Date of Thrive Assessment Date Thrive assessed 08/03/24 08/03/24 08:55 Currently or been in a relationship where the following occur: No concerns reported Results AMB Hemoglobin A1c AMB Hemoglobin A1c 5.2 % Last Edit by Kacy Scanlon CMA on 08/03/24 09:54 Immunizations Boostrix Tdap 2.5 Lf unit-8 mcg-5 Lf/0.5 mL intramuscular syringe Performing Provider: RUBY Villanueva Performing Location: [facility] Administered by: Kacy Scanlon CMA on 08/03/24 10:26 Dose Route Admin Location Dispensed Lot Number Expiration Date [employer] 0.5 mL IM Right Deltoid 0.5 mL [id number] 10/23/24 [id number] DEXMA VIS Given Date VIS Provided VIS Publication Date 08/03/24 Single Vaccine 20 Eligibility Eligibility Date Funding Source Not [facility] Eligible 08/03/24 Private Results Reviewed Results Reviewed: Laboratory Last Values Hgb A1c (Clinic) 5.2 % (4.0-6.0) 08/03/24 09:52 Coding Level of Care Code Est Pt Prev Care 40-64y(64031) Diagnoses Routine physical examination Z00.00 Additional Codes Asthma Control Questionnaire - ACT Interpretation: Positive ([id number]) HAILEY-7 Assessment Billing - HAILEY-7 Assessment Tool: HAILEY-7 Assessment 50464 ([id number]) Assessment & Plan Assessment & Plan (1) Routine physical examination: Code(s): Z00.00 - Encounter for general adult medical examination without abnormal findings Category: Medical Plan: Patient is seen today for a routine physical. As part of this visit we reviewed the following issues, which are considered and essential part of preventative health in this age group: - Breast Cancer screening - Annual Molder Machine exam - Screening for colon cancer - Blood pressure screening - Cholesterol screening - reviewed results and lifestyle modifications and diet - Osteoporosis prevention including calcium/vitamin D intake, weight bearing exercise & smoking cessation - Nutritional and exercise counseling - Counseling of injury prevention including fire prevention, smoke alarms and seat belt usage - Screening for depression - Education about skin cancer - Recommendations about immunizations - Recommendation of an eye exam - Screening for substance abuse Plan Follow up in 6 months. Orders: Orders TDaP Immunization Today Z23 - Encounter for immunization AMB Hemoglobin A1c Today Z13.9 - Encounter for screening, unspecified AMB Hemoglobin A1c Today R73.01 - Impaired fasting glucose Referrals Dermatology Referral Z85.828 - Personal history of other malignant neoplasm of skin
--- OUTSIDE RECORDS SUMMARY | 2024-08-03 08:45 | XMS_ITS | Clinical Summary ---
Author Organization [facility] Address [address] [place] [address] Care Team Providers Care Consulting Sales Executive Name Role Phone Unavailable Primary Care Provider [...]
[2024-08-03 08:53] VITALS: BP 118/82; PULSE 85; O2SAT 98; BMI 29.7
== END 2024-08-03 09:48 | disposition home or self-care (01) ==
LOC: HO.HMCFM 08:31
PROVIDERS: PCP Physician Assistant Medical; Visit Provider Physician Assistant Medical
DX: Z23 Encounter for immunization (principal); Z13.9 Encounter for screening, unspecified; R73.01 Impaired fasting glucose; Z00.00 Encounter for general adult medical examination without abnormal findings

== ENCOUNTER → 2024-08-03 08:31 | Outpatient (BNVA) | payer OTHER, SELFPAY | PROVIDERS: PCP Physician Assistant Medical; Visit Provider Physician Assistant Medical | DX: Z00.00 Encounter for general adult medical examination without abnormal findings (principal); Z23 Encounter for immunization; R73.01 Impaired fasting glucose; Z85.828 Personal history of other malignant neoplasm of skin | CPT/HCPCS: 83036; 90471; 90715; 96127; 96160 ==

== ENCOUNTER 2024-08-07 10:01 | Outpatient (AMB) | payer OTHER, SELFPAY ==
--- NOTE | 2024-08-07 10:31 | HO.SPINEOV ---
Intake Visit Reasons: Neck pain Intake Note: Ms. Pierre is here today c/o neck pain. MRI done @ [facility]. Director Metabolism Required: No Allergies Milk Containing Products (Dairy) Allergy (Verified 08/03/24 08:43) oral tingling adhesive bandage Allergy (Unknown, Uncoded 07/13/24 09:11) Unknown Assessment & Plan Assessment & Plan (1) Neuroforaminal stenosis of cervical spine: Code(s): M48.02 - Spinal stenosis, cervical region Category: Medical Plan Dear Aura, Thank you for referring Mrs Pierre to our office today. She is a very nice 53-year-old female presents to the office today for evaluation of a left upper extremity radiculopathy which started about 4 months ago. She does not recall any specific event that started it off, but it has been particularly persistent and painful. It starts on the left subscapular area radiates down into her upper arm, forearm then goes into her hand with numbness of her thumb, index and middle finger. She feels weakness in her arm when she tries to do exertion. There is a lot of pain at night, when she is sitting down lying down. The mornings can be particularly difficult because she does not sleep well. She is taking daily ibuprofen and Tylenol. She underwent some chiropractic treatment which she thinks may have had some effect. She is not exactly sure because part of the process has also been eliminating activities from her life that were causing her some pain so she stopped going to the gym. She is frustrated with her quality of life right now. She has gained weight because of the lack of activity. She came today to review her MRI showing degenerative disc disease at C5-6 and C6-7. PMH: She is otherwise healthy, some history of diverticulosis, appendectomy, bladder sling surgery in 2021, surgery for varicose veins. Social hx: She has not smoke cigarettes, she has a few glasses of wine about 3 days a week, no marijuana or recreational drugs Medications: Zinc, turmeric, Nexium, vitamin D3, multivitamin, meloxicam, ibuprofen, Tylenol Allergies: None Physical exam: Awake alert oriented no acute distress, strength in the left hand is maybe just slightly reduced but she is [id number]. Reflexes intact at the biceps triceps and brachioradialis. Imaging review: Cervical MRI done at [facility] shows reversal of the normal lordotic curvature of the cervical spine, she has a broad-based disc bulge at C5-6 causing bilateral neuroforaminal narrowing right greater than left, similar findings at C6-7. There is some effacement of the ventral CSF at C5-6 but no cord compression, no cord signal change. Impression: 53-year-old female presents with a left upper extremity cervical radiculopathy likely secondary to the disc degeneration at C5-6 and C6-7. She has had the symptoms now for about 4 months. She has done some gentle conservative treatment including chiropractic and activity modifications, Tylenol, ibuprofen etc.. It is probably slightly better than what it was when it 1st started but it is still affecting her quality of life. I reviewed her imaging with her, went over the natural history of degenerative disc disease. The good news is that these symptoms can come and go and if she waits it out with maybe some physical therapy and a little more tincture of time this could go away on its own. I gave her a prescription for PT just to get a little more treatment and see if we can nurse this along without needing surgery. If it does end up coming down to it where the pain will not go away, I believe Dr. Brown would offer her an anterior cervical diskectomy and fusion, most likely at both C5-6 and C6-7 levels. I would like to see her back in 6 weeks after she completes PT and re-evaluate. Thank you for allowing us to care for your patient. The total time spent with this visit with this patient was 45 minutes reviewing history, physical exam, cervical imaging review, and implementation of treatment plan or further diagnostic testing Juan Brown MD,PhD [facility] Orders: Orders PT Evaluation and Treatment Today M48.02 - Spinal stenosis, cervical region Coding Level of Care Code New Pt Level 4 (00676) Diagnoses Neuroforaminal stenosis of cervical spine M48.02
--- OUTSIDE RECORDS SUMMARY | 2024-08-07 11:19 | XMS_ITS | Clinical Summary ---
Author Organization [facility] Address [address] [place] [address] Care Team Providers Care Printer'S Devil Name Role Phone Unavailable Primary Care Provider [...]
--- OUTSIDE RECORDS SUMMARY | 2024-08-07 11:19 | XMS_ITS | Data Portability ---
Author Organization [facility] Address [address] [place] [address] Assessment No assessment recorded. Plan of Treatment Reminders Order Date Submit Date Provider Last Modified By Organization Details Last Modified Time Details Appointments None recorded. Lab rapid flu (A+B) 2023 024 [email or web address] [facility], [address] [place], [address], 4 12:07:10 rapid strep group A, throat 2022 023 [email or web address] [facility], [address] [place], [address], 3 15:29:28 streptococc us group A, culture, throat [address] [facility], [address] [place] [address], [place], [address], 3 12:06:34 Referral None recorded. Procedures None recorded. Surgeries None recorded. Imaging None recorded. Medication Orders Flonase Sensimist 27.5 mcg/actuati on nasal spray,suspe nsion 2023 024 [id number], [address] [place] [address], [id number], 4 12:07:19 albuterol sulfate HFA 90 mcg/actuati on aerosol inhaler 2023 024 [facility] #[id number], [address] [facility] [facility] [address], [place], [place], [id number], 4 12:07:19 amoxicillin 875 mg-potassiu m clavulanate 125 mg tablet 2023 024 [facility] #[id number], [address] [facility] [address], [place], [place], [id number], 4 12:07:19 Diflucan 150 mg tablet 2023 024 [facility] #[id number], [address] [facility] [address], [place], [place], [id number], 4 12:07:18 amoxicillin 875 mg-potassiu m clavulanate 125 mg tablet 2022 023 [facility] #[id number], [address] [facility] [address], [place], [place], [id number], 11:21:34 Patient TargetsNo targets recorded. Patient Instructions Encounter Date Encounter Id Patient Instructions Last Modified By Organization Details Last Modified Time 12/15/2022 [id number] ear infection (otitis media): care instructions Not available 12/15/2022 15:30:17 sore throat: car e instructions Not available 12/15/2022 15:29:27 04/08/2024 [id number] Acute Sinusitis: Care Instructions [email or web address] Not available 04/08/2024 12:07:10 Reason for Referral None Reported. Results Created Date Observation Date Name Description Value Unit Range Abnormal Flag Note LastModifiedBy Organization Detail LastModifiedTime 12/16/1912/18/2022 BETA STREP GP A CULTU RE beta strep gp A culture NEGATI VE Refer ence Range : Negat darlene Not Available [facility] ([facility]) [address] [facility], [place], [address], 12/18/2022 12:06:34 12/16/19 23 12/15/2022 rapid strep group A, throa t Unknown Analyte negati ve Not Available [facility] [address] [place] [address], [phone], 12/15/2022 15:13:07 04/08/20 24 04/08/2024 rapid flu (A+B) Unknown Analyte negati ve Not Available [facility] [address] [place] [address], [phone], 04/08/2024 11:24:14 04/08/20 24 04/08/2024 rapid flu (A+B) Unknown Analyte negati ve Not Available [facility] [address] [place] [address], [phone], 04/08/2024 11:24:14 04/08/20 24 04/08/2024 rapid flu (A+B) Unknown Analyte YES Not Available [facility] [address] [place] [address], [phone], 04/08/2024 11:24:14 Result Notes None recorded. Problems No Known Problems Procedures Surgical History Date Name Laterality Status Provider Name and Address Organization Details Recorded Time 04/26/19 06 Appendectomy completed [facility] - [facility] 12/15/2022 15:12:36 repair of stress incontinence by suprapubic sling completed [facility] - [facility] 12/15/2022 15:12:27 removal of ectopic fetus completed [facility] - [facility] 12/15/2022 15:12:49 Imaging [...] Updated DateTime 3 162.56 cm 27.5 kg/m2 86018.7 8 g 99 % 99 % 77 [...] Updated DateTime 4 162.56 cm 30 kg/m2 37490.6 6 g 99 [degF] 87 /min 99 [...] SNOMED-CT Code Diagnosis ICD10 Code Diagnosis Note [id number] [address] [address] 08/06/2018 13:48:14 08/06/2018 16:00:50 [id number] Rosanna Murray NP [address] [address] 12/15/2022 14:53:20 12/15/2022 15:37:32 Acute pharyngitis [id number] J02.9 Based on your Presentati on, Exam, [...] any questions or concerns. Acute otitis media 03910 03 H66.93 Acute bila teral otitis media [id number] H66.93 Based on your Presentati on, Exam, [...] if you have any questions or concerns. [id number] [place] [address] [address] 04/08/2024 10:38:01 04/08/2024 12:13:32 Acute sinusitis [id number] J01.90 Given Hx and Sx and PE [...] Hamilton Member ID Guarantor Name 08/06/2018 1 [id number] Sh[facility] James Carlo [id number] Shital Galvezasseur 12/15/[address] [facility] [id number] Shital Ramirez Carlo [id number] Shital Ramirez Carlo 04/08/2024 1 [facility] Shital Pierre [id number] Shital Matos Notes Date Note Type Note [...] Murray NP [address] [place], [address], [place] - [facility] 12/15/2022 15:36:47 4 [...] Jame Barnes, DO [address], [place], [address], [place] - [facility] 04/08/2024 12:07:31 OBGyn Episode No OBEpisode recorded.
== END 2024-08-07 10:55 | disposition home or self-care (01) ==
LOC: HO.HNS 10:02
PROVIDERS: PCP Physician Assistant Medical; Referring Provider Physician Assistant Medical; Visit Provider Physician Assistant
DX: M48.02 Spinal stenosis, cervical region (principal)
CPT/HCPCS: 99204

== ENCOUNTER → 2024-08-07 10:01 | Outpatient (BNVA) | payer OTHER, SELFPAY | PROVIDERS: PCP Physician Assistant Medical; Referring Provider Physician Assistant Medical; Visit Provider Physician Assistant ==

== ENCOUNTER → 2024-08-09 11:05 | Outpatient (REF) | payer OTHER, SELFPAY ==
--- OUTSIDE RECORDS SUMMARY | 2024-08-09 13:18 | XMS_ITS | Data Portability ---
Author Organization [facility], [address] Address [address] [place] [address] Assessment No assessment recorded. Plan of Treatment Reminders Order Date Submit Date Provider Last Modified By Organization Details Last Modified Time Details Appointments None recorded. Lab rapid flu (A+B) 2023 024 [email or web address] _ [facility], [address] [place], [address], 4 12:07:10 rapid strep group A, throat 2022 023 [email or web address] _ [facility], [address] [place], [address], 3 15:29:28 streptococc us group A, culture, throat 2022 023 DOE RUN [facility], [address] [place] [address], [place], [address], 3 12:06:34 Referral None recorded. Procedures None recorded. Surgeries None recorded. Imaging None recorded. Medication Orders Flonase Sensimist 27.5 mcg/actuati on nasal spray,suspe nsion 2023 024 [facility]94535, [address] [place] [address], [id number], 4 12:07:19 albuterol sulfate HFA 90 mcg/actuati on aerosol inhaler 2023 024 [facility] #11155, [address] [facility], [facility] 1, [place], [place], [id number], 4 12:07:19 amoxicillin 875 mg-potassiu m clavulanate 125 mg tablet 2023 024 [facility] #61748, [address] [facility] 1, [place], [place], [id number], 4 12:07:19 Diflucan 150 mg tablet 2023 024 [facility] #34462, [address] [facility] 1, [place], [place], [id number], 4 12:07:18 amoxicillin 875 mg-potassiu m clavulanate 125 mg tablet 2022 023 [facility] #64441, [address] [facility] 1, [place], [place], [id number], 11:21:34 Patient TargetsNo targets recorded. Patient Instructions Encounter Date Encounter Id Patient Instructions Last Modified By Organization Details Last Modified Time 12/15/2022 [id number] ear infection (otitis media): care instructions Not available 12/15/2022 15:30:17 sore throat: car e instructions Not available 12/15/2022 15:29:27 04/08/2024 [id number] Acute Sinusitis: Care Instructions [email or web address] Not available 04/08/2024 12:07:10 Reason for Referral None Reported. Results Created Date Observation Date Name Description Value Unit Range Abnormal Flag Note LastModifiedBy Organization Detail LastModifiedTime 12/16/1912/18/2022 BETA STREP GP A CULTU RE beta strep gp A culture NEGATI VE Refer ence Range : Negat darlene Not Available [facility] ([facility]) [address] [facility], [place], [address], 12/18/2022 12:06:34 12/16/19 23 12/15/2022 rapid strep group A, throa t Unknown Analyte negati ve Not Available [facility] [address] [place] [address], [address], 12/15/2022 15:13:07 04/08/20 24 04/08/2024 rapid flu (A+B) Unknown Analyte negati ve Not Available [facility] ie [facility] [address] [place] [address], [address], 04/08/2024 11:24:14 04/08/20 24 04/08/2024 rapid flu (A+B) Unknown Analyte negati ve Not Available [facility] [address] [place] [address], [address], 04/08/2024 11:24:14 04/08/20 24 04/08/2024 rapid flu (A+B) Unknown Analyte YES Not Available [facility] [address] [place] [address], [phone], 04/08/2024 11:24:14 Result Notes None recorded. Problems No Known Problems Procedures Surgical History Date Name Laterality Status Provider Name and Address Organization Details Recorded Time 04/26/19 06 Appendectomy completed [employer] PA - [facility] 12/15/2022 15:12:36 repair of stress incontinence by suprapubic sling completed [employer] PA - [facility] 12/15/2022 15:12:27 removal of ectopic fetus completed [employer] PA - [facility] 12/15/2022 15:12:49 Imaging [...] Updated DateTime 3 162.56 cm 27.5 kg/m2 45645.7 8 g 99 % 99 % 77 [...] Updated DateTime 4 162.56 cm 30 kg/m2 84001.6 6 g 99 [degF] 87 /min 99 [...] SNOMED-CT Code Diagnosis ICD10 Code Diagnosis Note [id number] [address] [address] 08/06/2018 13:48:14 08/06/2018 16:00:50 [id number] [place] [address] [address] 12/15/2022 14:53:20 12/15/2022 15:37:32 Acute pharyngitis 989364061 J02.9 Based on your Presentati on, Exam, [...] any questions or concerns. Acute otitis media 82348 03 H66.93 Acute bila teral otitis media [id number] H66.93 Based on your Presentati on, Exam, [...] if you have any questions or concerns. [id number] [place] [address] [address] 04/08/2024 10:38:01 04/08/2024 12:13:32 Acute sinusitis [id number] J01.90 Given Hx and Sx and PE [...] Hamilton Member ID Guarantor Name 08/06/2018 1 [id number] Shital James Carlo [id number] Shital Galvezasseur 12/15/2022 1 [facility] [id number] Shital Ramirez Carlo [id number] Shital Ramirez Carlo 04/08/2024 1 [facility] Shital Pierre [id number] Shital Matos Notes Date Note Type Note [...] Murray NP [address] [place], [address], PA - [facility] 12/15/2022 15:36:47 4 [...] Jame Barnes, DO [address], [place], [address], PA - [facility] 04/08/2024 12:07:31 OBGyn Episode No OBEpisode recorded.
--- OUTSIDE RECORDS SUMMARY | 2024-08-09 13:18 | XMS_ITS | Clinical Summary ---
Author Organization [facility] Address [address] [place] [address] Care Team Providers Care Embroidery Finisher Name Role Phone Unavailable Primary Care Provider Unavailabl e Social History Tobacco Use Types Packs/Day Years Used Date Smoking Tobacco: Never Assessed Comments Unknown Sex and Gender Information Value Date Recorded Sex Assigned at Not on file Legal Sex Female 11:33 PM EDT Gender Identity Not on file Sexual Orientation [...]
== END ==
LOC: HO.SL 11:05
PROVIDERS: PCP Physician Assistant Medical; Visit Provider Physician Assistant Medical
DX: G47.33 Obstructive sleep apnea (adult) (pediatric) (principal); G47.8 Other sleep disorders; R06.83 Snoring; R06.00 Dyspnea, unspecified; R51.9 Headache, unspecified
CPT/HCPCS: 95806

== ENCOUNTER → 2024-08-09 12:25 | Outpatient (BNV) | payer OTHER, SELFPAY | PROVIDERS: PCP Physician Assistant Medical; Visit Provider Internal Medicine | DX: G47.33 Obstructive sleep apnea (adult) (pediatric) (principal) | CPT/HCPCS: 95806 ==

== ENCOUNTER 2024-09-25 08:35 | Outpatient (REF) | payer OTHER, SELFPAY ==
--- OUTSIDE RECORDS SUMMARY | 2024-09-25 08:52 | XMS_ITS | Data Portability ---
Author Organization [facility], [address] Address [address] [place] [address] Assessment No assessment recorded. Plan of Treatment Reminders Order Date Submit Date Provider Last Modified By Organization Details Last Modified Time Details Appointments None recorded. Lab rapid flu (A+B) 2023 024 [email or web address] [facility], [address] [place], [address], 4 12:07:10 rapid strep group A, throat 2022 023 [email or web address] [facility], [address] [place], [address], 3 15:29:28 streptococc us group A, culture, throat 2022 023 [facility], [address] [place] [address], [place], [address], 3 12:06:34 Referral None recorded. Procedures None recorded. Surgeries None recorded. Imaging None recorded. Medication Orders Flonase Sensimist 27.5 mcg/actuati on nasal spray,suspe nsion 2023 024 [facility] #96132, [address] [place] [address], [id number], 4 12:07:19 albuterol sulfate HFA 90 mcg/actuati on aerosol inhaler [address] [facility] #71872, [address] [facility], [facility] 1, [place], [place], [phone], 4 12:07:19 amoxicillin 875 mg-potassiu m clavulanate 125 mg tablet [address] [facility] #94893, [address] [facility] 1, [place], [place], [id number], 4 12:07:19 Diflucan 150 mg tablet [address] [facility] #22744, [address] [facility] 1, [place], [place], [id number], 4 12:07:18 amoxicillin 875 mg-potassiu m clavulanate 125 mg tablet 2022 023 [facility] #07814, [address] [facility] 1, [place], [place], [id number], 11:21:34 Patient TargetsNo targets recorded. Patient Instructions Encounter Date Encounter Id Patient Instructions Last Modified By Organization Details Last Modified Time 12/15/2022 [id number] ear infection (otitis media): care instructions Not available 12/15/2022 15:30:17 sore throat: car e instructions Not available 12/15/2022 15:29:27 04/08/2024 [id number] Acute Sinusitis: Care Instructions [email or web address] Not available 04/08/2024 12:07:10 Reason for Referral None Reported. Results Created Date Observation Date Name Description Value Unit Range Abnormal Flag Note LastModifiedBy Organization Detail LastModifiedTime 12/16/1912/18/2022 BETA STREP GP A CULTU RE beta strep gp A culture NEGATI VE Refer ence Range : Negat darlene Not Available [facility]) [address] [facility], , [address], 12/18/2022 12:06:34 12/16/19 23 12/15/2022 rapid strep group A, throa t Unknown Analyte negati ve Not Available [facility] [address] [place] [address], [phone], 12/15/2022 15:13:07 04/08/20 24 04/08/2024 rapid flu (A+B) Unknown Analyte negati ve Not Available [facility] [address] [place] [address], [address], 04/08/2024 11:24:14 04/08/20 24 04/08/2024 rapid flu (A+B) Unknown Analyte negati ve Not Available [facility] [address] [place] [address], [phone], 04/08/2024 11:24:14 04/08/20 24 04/08/2024 rapid flu (A+B) Unknown Analyte YES Not Available [facility] [address] [place] [address], [address], 04/08/2024 11:24:14 Result Notes None recorded. Problems No Known Problems Procedures Surgical History Date Name Laterality Status Provider Name and Address Organization Details Recorded Time 04/26/19 06 Appendectomy completed [employer] PA - [facility] 12/15/2022 15:12:36 repair of stress incontinence by suprapubic sling completed [employer] PA - [facility] 12/15/2022 15:12:27 removal of ectopic fetus completed [employer] PA - [facility] 12/15/2022 15:12:49 Imaging [...] Updated DateTime 3 162.56 cm 27.5 kg/m2 11835.7 8 g 99 % 99 % 77 [...] Updated DateTime 4 162.56 cm 30 kg/m2 38764.6 6 g 99 [degF] 87 /min 99 % 99 % 143 mm[Hg] 76 mm[Hg] 143 mm[Hg] 82 mm[Hg] Denice Valdez PA - [facility] 11:21:11 Social History Question Answer Notes LastModified by Organizat ion Details LastModified Time Have You Had A Flu Shot This Season? No Information no t available 04/08/2024 If No, Would You Like A Flu Shot Today? No Information not available 04/08/2024 What Is Your Relationship Status? Information not available 04/08/2024 Are You Passively Exposed To Smoke? No Information no t available 04/08/2024 Have You Recently Traveled Abroad? No Information not available 04/08/2024 Sex: Unknown Functional Status Question Answer Note LastModified by Organizat ion Details LastModified Time How many times per week do you consume alcohol? 1-2 times per week Information not available 04/08/2024 Do you use any illicit or recreational drugs? No Information not available 04/08/2024 Do you or have you ever used any other forms of tobacco or nicotine? No Information not available 04/08/2024 What is your level of alcohol consumption? Occasional Information not available 04/08/2024 Are you currently employed? Yes Information not available 04/08/2024 Mental Status None recorded. Family History Relationship [...] SNOMED-CT Code Diagnosis ICD10 Code Diagnosis Note [id number] [facility] [address] [address] 08/06/2018 13:48:14 08/06/2018 16:00:50 [id number] Rosanna Murray, ANA [address] [address] 12/15/2022 14:53:20 12/15/2022 15:37:32 Acute pharyngitis 920362280 J02.9 Based on your Presentati on, Exam, [...] any questions or concerns. Acute otitis media 20381 03 H66.93 Acute bila teral otitis media 495977932 H66.93 Based on your Presentati on, Exam, [...] if you have any questions or concerns. [id number] [place] [address] [address] 04/08/2024 10:38:01 04/08/2024 12:13:32 Acute sinusitis [id number] J01.90 Given Hx and Sx and PE [...] Recorded Advance Directives Directive None Recorded Payers Insurance Date Sequence Insurance Name Policy Number Policy Hamilton Covered Member ID Hamilton Member ID Guarantor Name 04/09/2024 1 [employer] [id number] Shital T Carlo [id number] Shital T Carlo 07/28/2024 1 [facility] Shital T Ignacio [id number] Shital T Carlo 12/15/2022 1 [facility] [id number] Shital T Carlo [id number] Shital T Carlo Notes Date Note Type Note Provider [...] pain as well Rosanna Murray NP [address] [place], [address], PA - [facility] 12/15/2022 15:36:47 4 [...] meds w/o relief Jame Barnes, DO [address] [place], [address], PA - [facility] 04/08/2024 12:07:31 OBGyn Episode No OBEpisode recorded.
== END 2024-09-25 08:36 | disposition home or self-care (01) ==
LOC: HO.XRAY 08:35
PROVIDERS: PCP Physician Assistant Medical; Visit Provider Internal Medicine
DX: Z13.89 Encounter for screening for other disorder (principal)

== ENCOUNTER 2024-12-07 13:56 | Outpatient (AMB) | payer OTHER, SELFPAY ==
[2024-12-07 14:02] VITALS: BP 120/78; PULSE 88; O2SAT 97; BMI 29.3
--- NOTE | 2024-12-07 14:02 | A.OFFVIS_ITS ---
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 HST in chart(AHI-29, Supine 37, DANDRE-77%. APAP 6- 20cm)(CPAP sent to [facility] 11/21-have not gotten machine) Accompanied by: Self / Same As Patient Allergies Milk Containing Products (Dairy) Allergy (Verified 12/07/24 14:06) oral tingling adhesive bandage Allergy (Unknown, Uncoded 07/13/24 09:11) Unknown HPI Comments Details: 54 year old female patient presents for a sleep apnea evaluation per her pcp. Insurance has not authorized the cpap use yet, she is waiting on her cpap machine. She wakes up gasping for air and has heart palpitations. She has dry mouth and snores loudly per her . She has difficulty swallowing and has to force herself to swallow. Endoscopy next week. She is has vasomotor symptoms, anxiety with headaches, sweating, denies hot flashes. Mood is irritable. She has RLS, varicose veins now she is post vascular procedure for bilateral stripping of veins. She has throbbing pain, bilaterally in her heels, dull and aching pain. Constantly needs to move her feet and symptoms improve. Moderate Leg cramps in her calves. She does lift weights and exercises however never loses weight. She takes a magnesium glycinate 400mg po. [facility] Medical History Moderate obstructive sleep apnea Routine physical examination History of basal cell carcinoma Neuroforaminal stenosis of cervical spine Cervical stenosis of spinal canal IFG (impaired fasting glucose) Weakness of left hand Cervical radiculopathy Morning headache Snoring Non-restorative sleep Screening for malignant neoplasm of colon Dysphagia Surgical History Hx of colonoscopy History of esophagogastroduodenoscopy (EGD) Family History Mother Cancer of the liver and intrahepatic bile ducts Afib FHx: mental illness Father Substance abuse Alcohol abuse Cardiomyopathy Maternal Grandmother Skin cancer Son FHx: mental illness Social History Housing: House Alcohol intake: current Patient Tobacco Use Status: Former Tobacco user Years Smoked: college years e-Cigarette/Vaping Use: Never Used Second Hand Smoke Exposure: No service: No Current occupational status: employed 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 Current occupational exposures/hazards: No Cognitive needs: No Hearing needs: No Vision needs: No Physical Exam Vital Signs: Last Vital Signs Pulse 88 12/07/24 14:02 BP 120/78 12/07/24 14:02 Pulse Ox 97 12/07/24 14:02 Oxygen Delivery Method Room Air 12/07/24 14:02 BMI result Body Mass Index 29.3 Const General: cooperative, comfortable and no acute distress Nutritional Appearance: average body habitus Orientation/consciousness: patient oriented x3 HEENT Face and sinus: Yes face symmetric Teeth and gingiva: other (mallampti score is 3) Eyes Pupils: Equal, round and reactive pupils present Neck Neck: Yes full ROM Resp Effort & Inspection: normal respiratory effort and able to speak in complete sentences Neuro General: patient oriented x3 and moves all extremities Cranial nerves: Yes Facial sensation intact/muscles of mastication intact, Yes Equal, round and reactive pupils present, Yes Normal accommodation reflex present, Yes Normal facial strength present, Yes Midline tongue present, Yes Ability to bilaterally rotate head present and Yes Ability to bilaterally elevate shoulders present Cognition (Neuro): normal cognition Gait exam (Neuro): Normal gait present Motor exam (neuro): 5/5 motor strength present throughout and Normal motor muscle tone present throughout Psych Appearance: grossly normal Mental Status: mental status grossly normal Affect: normal affect Thought process: Normal thought process present Thought content: Normal thought content present Assessment & Plan Assessment & Plan (1) Excessive daytime sleepiness: Comment: hst Code(s): G47.19 - Other hypersomnia Category: Medical (2) Fatigue: Code(s): R53.83 - Other fatigue Category: Medical Qualifiers: Fatigue type: chronic, unspecified Qualified Code(s): R53.82 - Chronic fatigue, unspecified Plan HST r/o brayan Labs to r/o nutritional deficiencies Orders: Orders Vitamin B12 and Folate 12/07/24 G47.33 - Obstructive sleep apnea (adult) (pediatric) Vitamin D 25-OH Total 12/07/24 G47.33 - Obstructive sleep apnea (adult) (pediatric) Methylmalonic Acid 12/07/24 G47.33 - Obstructive sleep apnea (adult) (pediatric), G47.9 - Sleep disorder, unspecified, R53.83 - Other fatigue Homocysteine 12/07/24 G47.33 - Obstructive sleep apnea (adult) (pediatric), G47.9 - Sleep disorder, unspecified, R53.83 - Other fatigue RT home sleep study 12/08/24 G47.19 - Other hypersomnia Ferritin 12/07/24 G47.33 - Obstructive sleep apnea (adult) (pediatric) Patient Instructions: Sleep Hygiene provided: set a scheduled bedtime and wake time to help regulate the circadian rhythm and balance the release of pituitary hormones. Sleep in a dark room, temperatures below 68 degrees, and no devices n bed. Limit caffeinated products 6 hours prior to bed, and limit fluids 2-4 hours prior to bed. Gentle night yoga, diffusing essential oils, and playing soft music can be relaxing. Coding Level of Care Code New Pt Level 4 (39132) Diagnoses Excessive daytime sleepiness G47.19 Chronic fatigue R53.82 Fatigue type: chronic, unspecified
--- OUTSIDE RECORDS SUMMARY | 2024-12-07 14:47 | XMS_ITS | Clinical Summary ---
Author Organization [facility] Address [address] [place] [address] Care Team Providers Care Medical Records Clerk Name Role Phone Unavailable Primary Care Provider Unavailabl e Encounters Date Type Department Care Team Description 09/12/2024 Orders Only [facility] [address] [place] [address] Lam Sanabria MD from Last 3 Months [...] examination was interpreted by a fellowship-trained breast mri specialist. Information is entered into a reminder [...] your patient to us, Elia Schultz MD [phone] (Electronically Signed - 09/14/2024 11:13) Copy: [facility] [address] [place] [address] [id number] Procedure Note Elia Schultz MD - 09/14/2024 [...] Schultz MD 09/14/2024 11:13 AM EDT RPWorkstation: [id number] Thank you for referring your patient to us, Elia Schultz MD [phone] (Electronically Signed - 09/14/2024 11:13) Copy: [facility] [address] [place] [id number] us Rad-Self Referred [facility] LEGACY PROCEDURES Final Result from Last 3 Months
== END 2024-12-07 14:49 | disposition home or self-care (01) ==
LOC: HO.HSMS 13:57
PROVIDERS: PCP Physician Assistant Medical; Visit Provider Physician Assistant Medical
DX: G47.19 Other hypersomnia (principal); R53.82 Chronic fatigue, unspecified
CPT/HCPCS: 99204

== ENCOUNTER 2025-01-04 06:37 | Day surgery (SDC) | payer OTHER, SELFPAY ==
--- OUTSIDE RECORDS SUMMARY | 2024-11-20 09:40 | XMS_ITS | Data Portability ---
Author Organization [facility], [address] Address [address] [place] [address] Assessment No assessment recorded. Plan of Treatment Reminders Order Date Submit Date Provider Last Modified By Organization Details Last Modified Time Details Appointments None recorded. Lab rapid flu (A+B) 2023 024 [email or web address] [facility], [address] [place], [address], 4 12:07:10 rapid strep group A, throat 2022 023 [email or web address] [facility], [address] [place], [address], 3 15:29:28 streptococc us group A, culture, throat 2022 023 [place] [facility] [address] [place] [address], [place], [address], 3 12:06:34 Referral None recorded. Procedures None recorded. Surgeries None recorded. Imaging None recorded. Medication Orders Flonase Sensimist 27.5 mcg/actuati on nasal spray,suspe nsion 2023 024 [facility]60996, [address] [place] [address], [id number], 4 12:07:19 albuterol sulfate HFA 90 mcg/actuati on aerosol inhaler 2023 024 [facility] #34148, [address] [facility], [facility] 1, [place], [place], [id number], 4 12:07:19 amoxicillin 875 mg-potassiu m clavulanate 125 mg tablet 2023 024 [facility] #01254, [address] [facility] 1, [place], [place], [id number], 4 12:07:19 Diflucan 150 mg tablet 2023 024 [facility] #54320, [address] [facility] 1, [place], [place], [id number], 4 12:07:18 amoxicillin 875 mg-potassiu m clavulanate 125 mg tablet 2022 023 [facility] #09242, [address] [facility] 1, [place], [place], [phone], 4 11:21:34 Patient TargetsNo targets recorded. Patient Instructions Encounter Date Encounter Id Patient Instructions Last Modified By Organization Details Last Modified Time 12/15/2022 [id number] ear infection (otitis media): care instructions Not available 12/15/2022 15:30:17 sore throat: car e instructions Not available 12/15/2022 15:29:27 04/08/2024 [id number] Acute Sinusitis: Care Instructions [email or web address] Not available 04/08/2024 12:07:10 Reason for Referral None Reported. Results Created Date Observation Date Name Description Value Unit Range Abnormal Flag Note LastModifiedBy Organization Detail LastModifiedTime 12/16/19 23 12/18/2022 BETA STREP GP A CULTU RE beta strep gp A culture NEGATI VE Refer ence Range : Negat darlene Not Available [facility] ([facility]) [address] [facility], [place], [place], [address], 12/18/2022 12:06:34 12/16/19 23 12/15/2022 rapid strep group A, throa t Unknown Analyte negati ve Not Available [facility] [address] [place] [address], [address], 12/15/2022 15:13:07 04/08/20 24 04/08/2024 rapid flu (A+B) Unknown Analyte negati ve Not Available [facility] [address] [place] [address], [address], 04/08/2024 11:24:14 04/08/20 24 04/08/2024 rapid flu (A+B) Unknown Analyte negati ve Not Available [facility] [address] [place] [address], [phone], 04/08/2024 11:24:14 04/08/20 24 04/08/2024 rapid flu (A+B) Unknown Analyte YES Not Available [address] [place], [place] [address] [address] [place] [address], [address], 04/08/2024 11:24:14 Result Notes None recorded. Problems [...] Heart rate Respiratory rate Body temperature Systolic And Diastolic Provider Name and Address Organization Details Last Updated DateTime 3 162.56 cm 27.5 kg/m2 38400.7 8 g 99 % 99 % 77 /min 19 /min 98.5 [degF] 124/80 mm[Hg] LARRY HERNANDEZ PA - [facility] 3 15:11:31 Date Recorded Body height Body mass index (BMI) Body weight Body temperature Heart rate Oxygen saturation Oxygen saturation in Arterial blood by Pulse oximetry Systolic And Diastolic Systolic And Diastolic Provider Name and Address Organization Details Last Updated DateTime 4 162.56 cm 30 kg/m2 12869.6 6 g 99 [degF] 87 /min 99 % 99 % 143/76 mm[Hg] 143/82 mm[Hg] Denice AntoniettaMikkiCoy PA - [facility] 11:21:11 Social History [...] SNOMED-CT Code Diagnosis ICD10 Code Diagnosis Note [id number] _[facility] _[address]es [address] [address] 08/06/2018 13:48:14 08/06/2018 16:00:50 [id number] Rosanna Murray NP _Wes [address] [address] 12/15/2022 14:53:20 12/15/2022 15:37:32 Acute pharyngitis 173819805 J02.9 Based on your Presentati on, Exam, [...] any questions or concerns. Acute otitis media 90383 03 H66.93 Acute bila teral otitis media 815144420 H66.93 Based on your Presentati on, Exam, [...] if you have any questions or concerns. [id number] [place] [address] [address] 04/08/2024 10:38:01 04/08/2024 12:13:32 Acute sinusitis 14587907 J01.90 Given Hx and Sx and PE [...] Member ID Guarantor Name 04/09/2024 1 [employer] [id number] Shital Matos [id number] Shital Matos 10/05/2024 1 [facility] Shital Matos [id number] Shital Jacksoneur 12/15/2022 1 [facility] [id number] Shital Galvezasseur [id number] Shital Jacksoneur OBGyn Episode No OBEpisode recorded.
--- OUTSIDE RECORDS SUMMARY | 2024-11-20 09:40 | XMS_ITS ---
Author Name [facility] Organization Unknown Encounters Encounter Type Encounter Reason Primary Diagnosis Location Date Ambulatory [facility]. ([facility] 04/08/2024
--- OUTSIDE RECORDS SUMMARY | 2024-11-20 09:40 | XMS_ITS | Clinical Summary ---
Author Organization [facility] Address [address] [place] [address] Care Team Providers Care Security And Compliance Analyst Name Role Phone Unavailable Primary Care Provider Unavailabl e Encounters Date Type Department Care Team Description 09/12/2024 Orders Only [facility] [address] [place] [address] Lam Sanabria MD from Last 3 Months Social History Tobacco Use Types Packs/Day Years [...] (1 of 3 - 19+ 3-dose series) 10/26 Pneumococcal Vaccines 50+ (1 of 1 - PCV) 11/23/2021 Zoster (Shingles) Vaccine (1 of 2) 11/23/2021 COVID-19 Vaccine (1 - season) 2023 Procedures Procedure Name Priority Date/Time Associated Diagnosis Comments MG SCREENING DIGITAL BREAST MEAGAN- BILATERAL Routine 09/12/2024 4:47 PM EDT from Last 3 Months Results * MG SCREENING DIGITAL BREAST MEAGAN- BILATERAL (09/12/2024 4:47 PM EDT) Anatomical Region Laterality Modality Other 09/12/2024 4:15 PM EDT 09/12/2024 4:15 PM EDT Narrative 09/14/2024 11:13 AM EDT BILATERAL SCREENING MAMMOGRAM DIGITAL WITH CAD WITH 3D TOMOSYNTHESIS INDICATION: Screening. COMPARISONS: Multiple prior studies, most recent dated October 24, 2023. FINDINGS: 2D and 3D craniocaudal and mediolateral oblique views of both breasts were obtained utilizing digital acquisition. The breasts are heterogeneously dense, which may obscure small masses. (ACR BI- RADS Density Category C). No suspicious findings are noted in either breast. There is no change from prior. In addition to standard review, the examination was analyzed for possible abnormalities using a computer-assisted detection device. IMPRESSION: NO EVIDENCE OF MALIGNANCY IN EITHER BREAST. SCREENING MAMMOGRAPHY IN ONE YEAR IS RECOMMENDED. BI-RADS CATEGORY 1: NEGATIVE This examination was interpreted by a fellowship-trained breast insurance customer service specialist. Information is entered into a reminder system for a target due date for the next mammogram. The results and recommendations were sent to the patient by mail. Physician/Physician offices only: We appreciate the opportunity to participate in the care of your patient. Patients should contact the referring physician that ordered their exam for clarification or questions concerning their report. Electronically signed by: Elia Schultz MD 09/14/2024 11:13 AM EDT Thank you for referring your patient to us, Elia Schultz MD [phone] (Electronically Signed - 09/14/2024 11:13) Copy: [facility] [address] [place] [phone] Procedure Note Elia Schultz MD - 09/14/2024 BILATERAL SCREENING MAMMOGRAM DIGITAL WITH CAD WITH 3D TOMOSYNTHESIS INDICATION: Screening. COMPARISONS: Multiple prior studies, most recent dated October 24, 2023. FINDINGS: 2D and 3D craniocaudal and mediolateral oblique views of bothbreasts were obtained utilizing digital acquisition. The breasts are heterogeneously dense, which may obscure small masses.(ACR BI- RADS Density Category C). No suspicious findings are noted in either breast. There is no change from prior. In addition to standard review, the examination was analyzed for possibleabnormalities using a computer-assisted detection device. IMPRESSION: NO EVIDENCE OF MALIGNANCY IN EITHER BREAST. SCREENING MAMMOGRAPHY IN ONEYEAR IS RECOMMENDED. BI-RADS CATEGORY 1: NEGATIVE This examination was interpreted by a fellowship-trained breast imagingspecialist. Information is entered into a reminder system for a target due date forthe next mammogram. The results and recommendations were sent to thepatient by mail. Physician/Physician offices only: We appreciate the opportunity toparticipate in the care of your patient. Patients should contact thereferring physician that ordered their exam for clarification or questionsconcerning their report. Electronically signed by: Elia Schultz MD 09/14/2024 11:13 AM EDT RPWorkstation: [id number] Thank you for referring your patient to us, Elia Schultz MD [phone] (Electronically Signed - 09/14/2024 11:13) Copy: [facility] [address] [place] [phone] us Rad-Self Referred IMG LEGACY PROCEDURES Final Result from Last 3 Months
[2025-01-02 08:03] VITALS: BMI 30.2
[2025-01-04 06:49] VITALS: BMI 28.3
[2025-01-04 07:05] VITALS: BP 124/70; PULSE 74; RESP 16; TEMP 36.1; O2SAT 100
[2025-01-04] MEDS: Lactated Ringers 1,000 ML 100 ML IVCONT (07:12)
--- NOTE | 2025-01-04 07:13 | HO.ANESPROP2 ---
Documented by User: Annie Law NP 01/02/25 13:23 HPI - Anesthesia Eval Consult details Narrative: 54 yr old female for upper endoscopy, colonoscopy BRAYAN: not yet using CPAP PMF Active Problems Active Problems: All Active Problems (Updated 12/08/24 @ 13:08 by Isaac Otoole PA-C) Fatigue (Acute) Excessive daytime sleepiness (Acute) BRAYAN (obstructive sleep apnea) (Acute) Moderate obstructive sleep apnea (Acute) Routine physical examination (Acute) History of basal cell carcinoma (Acute) Neuroforaminal stenosis of cervical spine (Acute) Cervical stenosis of spinal canal (Acute) IFG (impaired fasting glucose) (Acute) Weakness of left hand (Acute) Cervical radiculopathy (Acute) Morning headache (Acute) Snoring (Acute) Non-restorative sleep (Acute) Screening for malignant neoplasm of colon (Acute) Dysphagia (Acute) Past Medical History Medical History (Updated 01/04/25 @ 07:11 by Chana Nunes RN) Sleep apnea Ectopic Moderate obstructive sleep apnea Routine physical examination History of basal cell carcinoma Neuroforaminal stenosis of cervical spine Cervical stenosis of spinal canal IFG (impaired fasting glucose) Weakness of left hand Cervical radiculopathy Morning headache Snoring Non-restorative sleep Screening for malignant neoplasm of colon Dysphagia Family History Family History Mother Cancer of the liver and intrahepatic bile ducts Afib FHx: mental illness Father Substance abuse Alcohol abuse Cardiomyopathy Maternal Grandmother Skin cancer Son FHx: mental illness Surgical History Surgical History (Updated 01/04/25 @ 06:48 by Chana Nunes RN) History of surgery Hx of appendectomy Hx of colonoscopy History of esophagogastroduodenoscopy (EGD) Social History Social History Housing: House Alcohol intake: current Patient Tobacco Use Status: Former Tobacco user Years Smoked: college years e-Cigarette/Vaping Use: Never Used Second Hand Smoke Exposure: No Use of substances other than those prescribed or required for medical reasons: No Are you DNR?: No Advance Directives: No Advance Directives Information Provided: Yes Patient : No : No Poor oral hygiene: No service: No Current occupational status: employed 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 Current occupational exposures/hazards: No Cognitive needs: No Hearing needs: No Vision needs: No Meds Allergies Allergy/AdvReac Type Severity Reaction Status Date / Time Milk Containing Products Allergy oral Verified 12/07/24 14:06 (Dairy) tingling adhesive bandage Allergy Unknown Unknown Uncoded 07/13/24 09:11 Home Medications ?Medication ?Instructions ?Recorded ?Confirmed ?Last Taken ?Type cholecalciferol (vitamin D3) PO 05/01/24 07/13/24 Unknown History multivitamin 1 tab PO DAILY 05/01/24 07/13/24 Unknown History omega-3 fatty acids [Fish Oil] PO 05/01/24 07/13/24 Unknown History turmeric 400 mg capsule mg PO 07/03/24 07/13/24 Unknown History cranberry 500 mg capsule 500 mg PO BID 08/03/24 Unknown History zinc sulfate 25 mg zinc (110 mg) 50 mg PO DAILY 08/03/24 Unknown History tablet (Orazinc) norethindrone acetate 1.5 1 tab PO DAILY 12/07/24 Unknown History mg-ethinyl estradiol 30 mcg tablet (Gabbi) Exam Height,Weight and Vital Signs: Height 5 ft 4 in Weight 79.832 kg Documented by User: Mariana Wood DO 01/04/25 07:14 [facility] Past Medical History Medical History (Updated 01/04/25 @ 07:11 by Chana Nunes RN) Sleep apnea Ectopic Moderate obstructive sleep apnea Routine physical examination History of basal cell carcinoma Neuroforaminal stenosis of cervical spine Cervical stenosis of spinal canal IFG (impaired fasting glucose) Weakness of left hand Cervical radiculopathy Morning headache Snoring Non-restorative sleep Screening for malignant neoplasm of colon Dysphagia Family History Family History Mother Cancer of the liver and intrahepatic bile ducts Afib FHx: mental illness Father Substance abuse Alcohol abuse Cardiomyopathy Maternal Grandmother Skin cancer Son FHx: mental illness Family history of problems with anesthesia: No Surgical History Surgical History (Updated 01/04/25 @ 06:48 by Chana Nunes RN) History of surgery Hx of appendectomy Hx of colonoscopy History of esophagogastroduodenoscopy (EGD) History of Problems with Anesthesia: No Social History Social History Housing: House Alcohol intake: current Patient Tobacco Use Status: Former Tobacco user Years Smoked: college years e-Cigarette/Vaping Use: Never Used Second Hand Smoke Exposure: No Use of substances other than those prescribed or required for medical reasons: No Are you DNR?: No Advance Directives: No Advance Directives Information Provided: Yes Patient : No : No Poor oral hygiene: No service: No Current occupational status: employed 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 Current occupational exposures/hazards: No Cognitive needs: No Hearing needs: No Vision needs: No Meds Allergies Allergy/AdvReac Type Severity Reaction Status Date / Time Milk Containing Products Allergy oral Verified 12/07/24 14:06 (Dairy) tingling adhesive bandage Allergy Unknown Unknown Uncoded 07/13/24 09:11 Home Medications ?Medication ?Instructions ?Recorded ?Confirmed ?Last Taken ?Type cholecalciferol (vitamin D3) PO 05/01/24 07/13/24 Unknown History multivitamin 1 tab PO DAILY 05/01/24 07/13/24 Unknown History omega-3 fatty acids [Fish Oil] PO 05/01/24 07/13/24 Unknown History turmeric 400 mg capsule mg PO 07/03/24 07/13/24 Unknown History cranberry 500 mg capsule 500 mg PO BID 08/03/24 Unknown History zinc sulfate 25 mg zinc (110 mg) 50 mg PO DAILY 08/03/24 Unknown History tablet (Orazinc) norethindrone acetate 1.5 1 tab PO DAILY 12/07/24 Unknown History mg-ethinyl estradiol 30 mcg tablet (Gabbi) Exam Exam Date and Time: 01/04/25 0714 Height,Weight and Vital Signs: Height 5 ft 4 in Weight 79.832 kg Vital Signs Temperature 96.9 F 01/04/25 07:05 Pulse Rate 74 01/04/25 07:05 Respiratory Rate 16 01/04/25 07:05 Blood Pressure 124/70 01/04/25 07:05 Pulse Oximetry 100 01/04/25 07:05 Oxygen Delivery Method Room Air 01/04/25 07:05 Temperature 96.9 F 01/04/25 07:05 Pulse Rate 74 01/04/25 07:05 Respiratory Rate 16 01/04/25 07:05 Blood Pressure 124/70 01/04/25 07:05 Pulse Oximetry 100 01/04/25 07:05 Oxygen Delivery Method Room Air 01/04/25 07:05 Airway Mallampati Class: II TM Dist: >3cm Neck ROM: Full Loose/Missing/Broken Teeth: No (patient denies any loose or broken teeth) Heart: S1S2 Lungs: CTAB Assessment and Plan Assessment Anesthesia Assessment: Anesthesia Plan Discussed and Chart Reviewed Final Anesthetic Review Family History of Problems with Anesthesia: No History of Problems with Anesthesia: No NPO: Yes ASA Class: II Final Preanesthetic Review: No Changes in Pt Med Stat, Meds/Allgs Chart Reviewed, Consent Obtained/Reviewed and Anes Risks/Benef Reviewed Patient Risk: Low Procedure Risk: Low Anesthetic Plan Anesthetic Plan: MAC: and Agree w/ Assess. and Plan Disposition: Standard PACU
--- NOTE | 2025-01-04 07:49 | MHC.SHP ---
Pre-Procedural Eval Section A - 24 Hr Update-Section A only Date of Service: 01/04/25 Section B - Complete if H&P > 30 days Chief Complaint: screening,dysphagia Details of Present Illness: Morning headache Snoring Non-restorative sleep Screening for malignant neoplasm of colon Dysphagia Surgical History (Updated 07/03/24 @ 14:29 by THIEN Mendez) Hx of colonoscopy History of esophagogastroduodenoscopy (EGD) Allergies: Allergies Allergy/AdvReac Type Severity Reaction Status Date / Time Milk Containing Products Allergy oral Verified 12/07/24 14:06 (Dairy) tingling adhesive bandage Allergy Unknown Unknown Uncoded 07/13/24 09:11 Review of Systems Review of Systems Comment: Ten point ROS negative Exam Exam Comment: Gen appear: No acute distress HEENT: no icterus Chest: No overt resp distress Abd: soft, nontender, nondistended Psych: Stable affect, answering questions appropriately Neuro: A/Ox3 noted to move all extremities spontaneously Ext: no peripheral edema Plan Diagnosis/Plan: Unchanged I have reviewed the history and physical and performed a pertinent physical examination on my patient. No changes have occurred unless specified. Time Spent With Patient Time: Total time managing care of this patient today ____ minutes.
[2025-01-04 08:29] VITALS: BP 114/69; PULSE 73; RESP 12; TEMP 37.2; O2SAT 100
--- NOTE | 2025-01-04 08:29 | P.OPN-COLO_ITS ---
Colonoscopy Operative Note Operative Note Date of Service: 01/04/25 Narrative: Procedure: Upper endoscopy and colonoscopy Indication: Dysphagia, screening Endoscopist: Mervat Wall MD Anesthesia Provider: Funmilayo Back CRNA Anesthesia type: MAC Instrument: [id number] and [id number] EGD Procedure:?? The procedure, indications, preparation and potential complications were reviewed with the patient, who indicated understanding and gave written informed consent to proceed. The endoscope was introduced through the mouth, and advanced to the 2nd part of the duodenum. The mucosa was carefully examined on slow withdrawal of the endoscope. The patient tolerated the procedure well. There were no immediate complications.? EGD Findings:? * Esophagus:? Normal esophageal mucosa was noted. The Z-line was at 36 cm. Cold forceps biopsies were taken from middle and lower esophagus to rule out eosinophilic esophagitis. * Stomach:? Normal gastric mucosa. Retroflexion was performed in the cardia. * Duodenum:? Erythema and edema noted in the duodenal bulb. Cold forceps biopsies were taken from the duodenal bulb and 2nd portion of the duodenum to rule out celiac sprue. Additional intervention: Soft tip Savary wire was introduced through the biopsy channel of the gastroscope and advanced to the antrum. ?The gastroscope was then backed out. ?Savary Ankit bougie was advanced over the guidewire and the esophagus was dilated to 18 with resistance felt. ?On relook, no heme or tear was noted. ? Colonoscopy Procedure:? The patient was then turned for the colonoscopy. A digital rectal exam was performed which was abnormal for external hemorrhoids.? A distal attachment cap was affixed to the tip of the scope and the colonoscope was then inserted through the anus and advanced through the colon and advanced to the cecum at 75 cm and terminal ileum.? Appendiceal orifice and ileocecal valve were identified. Mucosa was carefully examined under high definition white light as the instrume nt was slowly withdrawn in a retrograde panoramic fashion. Retroflexion was performed in rectum. The procedure was not difficult. The quality of the prep was BBPS: 3+3+3 = excellent Withdrawal time 9 minutes Limitations: No limitations Findings: Mucosa: Normal colon and terminal ileum mucosa. Protruding lesions: * Medium internal hemorrhoids without stigmata of recent bleeding. Excavated lesions: * Moderate diverticulosis of left colon was noted. Impression: 1. Normal esophagus (biopsy, dilation) 2. Normal stomach 3. Duodenitis (biopsy) 4. Normal colon and terminal ileum mucosa 5. Internal and external hemorrhoids 6. Diverticulosis Recommendations:?? * Follow-up path results * Avoid NSAIDs * No obvious esophageal narrowing was noted today. Empiric dilation was performed. If this helps the swallowing, this can be repeated as needed for recurrence of symptoms. * Repeat colonoscopy for CRC screening in 10 years.
[2025-01-04 08:44] VITALS: BP 124/78; PULSE 65; RESP 12; TEMP 36.6; O2SAT 100
== END 2025-01-04 09:24 | disposition home or self-care (01) ==
PROVIDERS: PCP Physician Assistant Medical; Visit Provider Internal Medicine
PROC: (CPT 45378; principal; 2025-01-04 07:30)
DX: Z12.11 Encounter for screening for malignant neoplasm of colon (principal); K57.30 Diverticulosis of large intestine without perforation or abscess without bleeding; K64.8 Other hemorrhoids; K64.4 Residual hemorrhoidal skin tags; R13.10 Dysphagia, unspecified; K20.80 Other esophagitis without bleeding; K29.80 Duodenitis without bleeding; G47.33 Obstructive sleep apnea (adult) (pediatric); Z87.891 Personal history of nicotine dependence
CPT/HCPCS: 45378; 43248; 43239; 88305; 88313; C1769; J2003; J2704

== ENCOUNTER → 2025-01-04 06:37 | Outpatient (BNV) | payer OTHER, SELFPAY | PROVIDERS: PCP Physician Assistant Medical; Visit Provider Internal Medicine | DX: Z12.11 Encounter for screening for malignant neoplasm of colon (principal); K57.90 Diverticulosis of intestine, part unspecified, without perforation or abscess without bleeding; K64.8 Other hemorrhoids; R13.10 Dysphagia, unspecified; K29.80 Duodenitis without bleeding | CPT/HCPCS: 43239; 43248; 45378 ==

== ENCOUNTER 2025-02-08 09:18 | Outpatient (REF) | payer OTHER, SELFPAY ==
--- OUTSIDE RECORDS SUMMARY | 2025-02-08 14:47 | XMS_ITS | Data Portability ---
Author Organization RUBY Mckeon s, [address] Address [address] [place] [address] Assessment No assessment recorded. Plan of Treatment Reminders Order Date Submit Date Provider Last Modified By Organization Details Last Modified Time Details Appointments None recorded. Lab rapid flu (A+B) 2023 024 [email or web address] [address] [place], [address], 4 12:07:10 rapid strep group A, throat 20[email or web address] _[facility], [address] [place], [address], 3 15:29:28 streptococc us group A, culture, throat 2022 023 [facility], [address] [place] [address], [place], [address], 3 12:06:34 Referral None recorded. Procedures None recorded. Surgeries None recorded. Imaging None recorded. Medication Orders Flonase Sensimist 27.5 mcg/actuati on nasal spray,suspe nsion 2023 024 [facility] #[id number], [address] [place] [address], [id number], 4 12:07:19 albuterol sulfate HFA 90 mcg/actuati on aerosol inhaler 2023 024 [facility] #[id number], [address] [facility] [facility] [address], [place], [place], [id number], 4 12:07:19 amoxicillin 875 mg-potassiu m clavulanate 125 mg tablet 2023 024 [facility] #[id number], [address] [facility] [address], [place], [place], [id number], 4 12:07:19 Diflucan 150 mg tablet 2023 024 [facility] #[id number], [address] [facility] [address], [place], [place], [id number], 4 12:07:18 amoxicillin 875 mg-potassiu m clavulanate 125 mg tablet 2022 023 [facility] #[id number], [address] [facility] [address], [place], [place], [id number], 4 11:21:34 Patient TargetsNo targets recorded. Patient Instructions Encounter Date Encounter Id Patient Instructions Last Modified By Organization Details Last Modified Time 12/15/2022 [id number] ear infection (otitis media): care instructions Not available 12/15/2022 15:30:17 sore throat: car e instructions Not available 12/15/2022 15:29:27 04/08/2024 [id number] Acute Sinusitis: Care Instructions [email or web address] Not available 04/08/2024 12:07:10 Reason for Referral None Reported. Results Created Date Observation Date Name Description Value Unit Range Abnormal Flag Note LastModifiedBy Organization Detail LastModifiedTime 12/16/19 23 12/18/2022 BETA STREP GP A CULTU RE beta strep gp A culture NEGATI VE Refer ence Range : Negat darlene Not Available [facility] ([facility]) [address] [facility], [place], [address], 12/18/2022 12:06:34 12/16/19 23 12/15/2022 rapid strep group A, throa t Unknown Analyte negati ve Not Available [facility] [address] [place] [address], [phone], 12/15/2022 15:13:07 04/08/20 24 04/08/2024 rapid flu (A+B) Unknown Analyte negati ve Not Available [facility] [address] [place] [address], [phone], 04/08/2024 11:24:14 04/08/20 24 04/08/2024 rapid flu (A+B) Unknown Analyte negati ve Not Available [facility] [address] [place] [address], [phone], 04/08/2024 11:24:14 04/08/20 24 04/08/2024 rapid flu (A+B) Unknown Analyte YES Not Available [id number] [place], [place] [address] [address] [place] [address], [phone], 04/08/2024 11:24:14 Result Notes None recorded. Problems No Known Problems Procedures Surgical History Date Name Laterality Status Provider Name and Address Organization Details Recorded Time 04/26/19 06 Appendectomy completed [facility] - [facility] 12/15/2022 15:12:36 repair of stress incontinence by suprapubic sling completed [facility] - [facility] 12/15/2022 15:12:27 removal of product of conception of ectopic completed [facility] [facility] - [facility] 12/15/2022 15:12:49 Imaging [...] Updated DateTime 3 162.56 cm 27.5 kg/m2 73755.7 8 g 99 % 99 % 77 /min 19 /min 98.5 [degF] 124/80 mm[Hg] LARRY BELTRAN - [facility] 3 15:11:31 Date Recorded Body height Body mass index (BMI) Body weight Body temperature Heart rate Oxygen saturation Oxygen saturation in Arterial blood by Pulse oximetry Systolic And Diastolic Systolic And Diastolic Provider Name and Address Organization Details Last Updated DateTime 4 162.56 cm 30 kg/m2 23110.6 6 g 99 [degF] 87 /min 99 [...] Diagnosis SNOMED-CT Code Diagnosis ICD10 Code Diagnosis IMO Codes Diagnosis Note [id number] [facility] [address] 08/06/2018 13:48:14 08/06/2018 16:00:50 [id number] [place] [address] [address] 12/15/2022 14:53:20 12/15/2022 15:37:32 Acute pharyngitis [id number] J02.9 Based on your Presentati on, Exam, [...] any questions or concerns. Acute otitis media 18837 03 H66.93 Acute bila teral otitis media [id number] H66.93 Based on your Presentati on, Exam, [...] if you have any questions or concerns. [id number] [place] [address] [address] 04/08/2024 10:38:01 04/08/2024 12:13:32 Acute sinusitis [id number] J01.90 Given Hx and Sx and PE [...] Member ID Guarantor Name 04/09/2024 1 [employer] [id number] Shital T Carlo [id number] Shital T Carlo 10/05/2024 1 [facility] Shital T Carlo [id number] Shital T Carlo 12/15/2022 1 [facility] [id number] Shital T Carlo [id number] Shital T Carlo Notes Date Note Type Note Provider Name and Address Organization Details Recorded Time 3 text/html Sore throatReported by PatientSore ThroatFor associated symptoms, patient reportshoarsenessbut reportsno cough,no sputum production,no shortness of breath,no wheezing,no sinus pain,no vomiting, andno nausea. For context, patient reportssick contactbut reportsno foreign travelandnon-smoker. For source of patient information, patient reportsinformation obtained from patientandpatient arrived at urgent care ambulatory. For location, patient reportsthroat. For severity, patient reportsmoderate. For quality, patient reportshurts to swallow. For onset/timing, patient reports3 days. For modifying factors, patient reportsotc medication __.sore thoat x3 days pt states roof of mouth feels sore, has been swimming in river the past week , left ear pain as well Rosanna Murray NP [address] [place], [address], [place] - [facility] 12/15/2022 15:36:47 4 text/html Sinus Complaints UCReported by [email or web address] yo f c/o R side face/sinus pressurefever to [address] [place], [place] [address]ugh[address] aches took home covid test - negative + h/o asthma as a child. n o meds but uses son's albuterol prnnon smoker No nauseaNo vomitingNo wheezeNo difficulty breathing or respiratory distressNo CP+ congestionNo ear painNo sore throatNo Abdominal painNo diarrheaNo fatigueNo rashNo dizzinessNo recent travelNo known sick contacts tried OTC meds w/o relief ROS as noted in the HPI Jame Barnes, DO [address] [place], [address], [place] - [facility] 04/08/2024 12:07:31 OBGyn Episode No OBEpisode recorded.
[2025-02-08 14:56] LABS: Ferritin 85 ng/mL (10-250)
[2025-02-08 15:21] LABS: Folate 12.8 ng/mL (> or = 4.0); Vitamin B12 419 pg/mL (200-900)
== END 2025-02-08 09:19 | disposition home or self-care (01) ==
LOC: HO.WFDLDS 09:18
PROVIDERS: Physician Assistant Medical; PCP Physician Assistant Medical; Visit Provider Physician Assistant Medical
DX: G47.33 Obstructive sleep apnea (adult) (pediatric) (principal); R53.83 Other fatigue; E78.5 Hyperlipidemia, unspecified; M54.12 Radiculopathy, cervical region; K21.9 Gastro-esophageal reflux disease without esophagitis; R73.01 Impaired fasting glucose; R13.10 Dysphagia, unspecified; R73.9 Hyperglycemia, unspecified; Z13.6 Encounter for screening for cardiovascular disorders; Z79.899 Other long term (current) drug therapy; Z85.828 Personal history of other malignant neoplasm of skin; Z99.89 Dependence on other enabling machines and devices
CPT/HCPCS: 36415; 82306; 82607; 82728; 82746; 83921

== ENCOUNTER 2025-02-08 09:18 | Outpatient (AMB) | payer OTHER, SELFPAY ==
--- NOTE | 2025-02-08 09:19 | A.OFFPC_ITS ---
Vital Signs 02/08/25 09:26 Height 5 ft 4 in Weight 162 lb 6 oz BMI 27.9 BP 120/78 Blood Pressure Location Rt brachial Position Sitting Respiration 12 Pulse 88 Pulse Source Pulse Oximeter Temp 98.6 F Temp Source Temporal Artery Scan Pulse Oximetry (%) 99 Oxygen Delivery Method Room Air Intake Visit Reasons: follow up Intake Note: Shital presents in the office for a follow up. Allergies Milk Containing Products (Dairy) Allergy (Verified 02/08/25 09:23) oral tingling adhesive bandage Allergy (Unknown, Uncoded 02/08/25 09:23) Unknown Tobacco use date assessed: 02/08/25 Dental Screening Dental Screen Date: 02/08/25 Did you have a dental visit in the last 12 months?: Yes Did you have a dental problem in the last 6 months where you did not have access to dental care?: No Was dental information given to patient?: Patient has dentist HPI HPI Comments History of Present Illness Details This is a 53-year-old female with a past medical history of anemia, hepatic steatosis, cervical radiculopathy and hyperlipidemia presenting for follow up. Cervical radiculopathy- MRI of the cervical spine showed multilevel spondylosis and cervical stenosis of the spinal canal. She saw the neuro spine clinic. She did physical therapy, but she notes she does still have to go back for more physical therapy. Surgery is not planned at this time. She saw Gastroenterology for evaluation of dysphagia and GERD. Patient is on Nexium. She had a colonoscopy and EGD this year, and esophagus was dilated empirically. She has been doing well since that time. It was recommended to repeat the colonoscopy in 10 years. Obstructive sleep apnea-followed by sleep medicine. She is using a CPAP. This is taking some getting used to. She switched to the nasal mask. She has a follow up appointment scheduled. She saw [facility] in September to menopausal symptoms. She was switched from Gabbi to progesterone only contraceptive. She had an ultrasound which showed ovarian cysts, and she has a follow up scheduled in a few weeks to rechecked. Her fasting blood sugar was mildly elevated at 103, but her last hemoglobin A1c was normal. She has lost weight. She cut out alcohol and carbohydrates, and she notes some weight loss due to stress recently because she is moving. They had to sell both her 's and her own house and move to a new house. They are closing in February. She also had some work-related stress. Basal cell carcinoma-no longer seeing [facility]. They canceled her appointment without informing her. Referral was faxed multiple times to [facility], and it was confirmed that it went through on 01/23/2025 so she is going to call to schedule the appointment. Declined flu vaccine today, but she will get it at her pharmacy. She takes 10 mg of Paxil nightly which is working. ROS: Constitutional: No unexplained weight loss, fever, chills or night sweats. Gastrointestinal: No anorexia, nausea, vomiting or diarrhea. No abdominal pain or blood in stool. Neurologic: No headache, dizziness, syncope Musculoskeletal: Per HPI Skin: No rash Endocrine: No cold or heat intolerance. No polyuria or polydipsia. Psychiatric: No depression. See HPI Physical exam: Constitutional: Alert, in no distress. Neck: Supple, Full range of motion. No lymphadenopathy. No palpable thyroid masses. Respiratory: Clear to auscultation. Cardiovascular: S1 S2 regular. No murmurs. Extremities: Warm and well perfused. No clubbing, cyanosis or edema. Psychiatric: Normal mood and affect [facility] Medical History (Updated 02/09/25 @ 09:20 by RUBY Villanueva) Sleep apnea Ectopic Moderate obstructive sleep apnea Routine physical examination History of basal cell carcinoma Neuroforaminal stenosis of cervical spine Cervical stenosis of spinal canal IFG (impaired fasting glucose) Weakness of left hand Cervical radiculopathy Morning headache Snoring Non-restorative sleep Screening for malignant neoplasm of colon Dysphagia Surgical History (Updated 01/04/25 @ 06:48 by Chana Nunes RN) History of surgery Hx of appendectomy Hx of colonoscopy History of esophagogastroduodenoscopy (EGD) Family History Mother Cancer of the liver and intrahepatic bile ducts Afib FHx: mental illness Father Substance abuse Alcohol abuse Cardiomyopathy Maternal Grandmother Skin cancer Son FHx: mental illness Social History (Updated 02/08/25 @ 09:26 by Angy Long CMA) Housing: House Alcohol intake: current Patient Tobacco Use Status: Former Tobacco user Years Smoked: college years e-Cigarette/Vaping Use: Never Used Second Hand Smoke Exposure: No Use of substances other than those prescribed or required for medical reasons: No service: No Current occupational status: employed 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 Current occupational exposures/hazards: No Cognitive needs: No Hearing needs: No Vision needs: No Questionnaire Thrive Questionnaire Date Thrive assessed: 05/01/24 I am a: Patient What is your living situation today?: I have a steady place to live Within the past 12 months, did the food you bought not last and you didn't have the money to get more?: Never true Within the past 12 months, did you worry whether your food would run out before you got money to buy more?: Never true Do you have trouble paying for medicines?: No Do you have trouble getting transportation to medical appointments?: No Do you have trouble paying your heating and electricity bill?: No Do you have trouble taking care of your child, family member or friend?: No Do you have trouble with day-to-day activities such as bathing, preparing meals, shopping, managing finances, etc.?: No Are you currently unemployed and looking for a job?: No Are you interested in more education?: No Please select the resources that you would like help with: None Currently or been in a relationship where the following occur: No concerns reported THRIVE Score: 0 HAILEY-7 AMB Questionnaire HAILEY-7 Date HAILEY - 7 assessed: 08/03/24 Source: Developed by Drs. Marquise Sheppard, Diana Batista, Efraín Augustine and colleagues, with an educational fady from [employer]. Physical exam (Primary Care) Vital Signs: Last Vital Signs Temp 98.6 F 02/08/25 09:26 Pulse 88 02/08/25 09:26 Resp 12 02/08/25 09:26 BP 120/78 02/08/25 09:26 Pulse Ox 99 02/08/25 09:26 Oxygen Delivery Method Room Air 02/08/25 09:26 BMI result Body Mass Index 27.9 Tobacco/Smoking Status: Tobacco use Status Tobacco use date assessed 02/08/25 02/08/25 09:29 Patient Tobacco Use Status Former Tobacco user 02/08/25 09:26 e-Cigarette/Vaping Use Never Used 02/08/25 09:26 Thrive Assessment: Date of Thrive Assessment Date Thrive assessed 01/06/25 10/16/25 09:20 Currently or been in a relationship where the following occur: No concerns reported Coding Level of Care Code Est Pt Level 4 (99363) Complex EM visit Add On G2211 Diagnoses IFG (impaired fasting glucose) R73.01 Dysphagia, unspecified type R13.10 Dysphagia type: unspecified History of basal cell carcinoma Z85.828 Cervical radiculopathy M54.12 BRAYAN (obstructive sleep apnea) G47.33 Assessment & Plan Assessment & Plan (1) IFG (impaired fasting glucose): Code(s): R73.01 - Impaired fasting glucose Category: Medical Plan: Continue efforts at weight loss and low carbohydrate, low sugar diet. Do not drink alcohol excessively. Monitor A1c. (2) Dysphagia: Code(s): R13.10 - Dysphagia, unspecified Category: Medical Qualifiers: Dysphagia type: unspecified Qualified Code(s): R13.10 - Dysphagia, unspecified Plan: Evaluated by Gastroenterology. Status post endoscopy with empiric dilation. She is on a PPI. Her symptoms are well-controlled. (3) History of basal cell carcinoma: Code(s): Z85.828 - Personal history of other malignant neoplasm of skin Category: Medical Plan: Followed by Dermatology. (4) Cervical radiculopathy: Code(s): M54.12 - Radiculopathy, cervical region Category: Medical Plan: She will be following up to do further physical therapy, and if symptoms worsen she will contact the spine clinic. (5) BRAYAN (obstructive sleep apnea): Code(s): G47.33 - Obstructive sleep apnea (adult) (pediatric) Category: Medical Plan: Managed by sleep medicine. Plan She has a physical exam scheduled. Orders: Orders Complete Blood Count no Diff 5 Months M54.12 - Radiculopathy, cervical region, R13.10 - Dysphagia, unspecified, R73.01 - Impaired fasting glucose, Z13.6 - Encounter for screening for cardiovascular disorders, Z85.828 - Personal history of other malignant neoplasm of skin Lipid Panel 5 Months E78.5 - Hyperlipidemia, unspecified, M54.12 - Radiculopathy, cervical region, R13.10 - Dysphagia, unspecified, R73.01 - Impaired fasting glucose, Z13.6 - Encounter for screening for cardiovascular disorders, Z85.828 - Personal history of other malignant neoplasm of skin TSH reflex Free T4 5 Months M54.12 - Radiculopathy, cervical region, R13.10 - Dysphagia, unspecified, R73.01 - Impaired fasting glucose, Z13.6 - Encounter for screening for cardiovascular disorders, Z85.828 - Personal history of other malignant neoplasm of skin Hemoglobin A1c 5 Months R73.9 - Hyperglycemia, unspecified Comprehensive Met. Panel 5 Months M54.12 - Radiculopathy, cervical region, R13.10 - Dysphagia, unspecified, R73.01 - Impaired fasting glucose, Z13.6 - Encounter for screening for cardiovascular disorders, Z85.828 - Personal history of other malignant neoplasm of skin
[2025-02-08 09:26] VITALS: BP 120/78; PULSE 88; RESP 12; TEMP 37; O2SAT 99; BMI 27.9
== END 2025-02-08 10:03 | disposition home or self-care (01) ==
LOC: HO.HMCFM 09:18
PROVIDERS: PCP Physician Assistant Medical; Visit Provider Physician Assistant Medical
DX: R73.01 Impaired fasting glucose (principal); R13.10 Dysphagia, unspecified; Z85.828 Personal history of other malignant neoplasm of skin; M54.12 Radiculopathy, cervical region; G47.33 Obstructive sleep apnea (adult) (pediatric)

== ENCOUNTER 2025-03-09 13:00 | Outpatient (AMB) | payer OTHER, SELFPAY ==
[2025-03-09 13:05] VITALS: BP 120/76; PULSE 82; O2SAT 98; BMI 28.7
--- NOTE | 2025-03-09 13:05 | MHC.OFFVIS ---
Vital Signs 03/09/25 13:05 Height 5 ft 4 in Weight 167 lb 6 oz BMI 28.7 BP 120/76 Blood Pressure Location Rt brachial Position Sitting Pulse 82 Pulse Source Pulse Oximeter Pulse Oximetry (%) 98 Oxygen Delivery Method Room Air Intake Visit Reasons: 3mnth BRAYAN (CONF.) Intake Note: Patient presents follow up BRAYAN. Labs/Compliance in chart(43/69days, >=4hrs-46%, Average Usage-3hr 5min, Med Pressure-7.9, Med Leaks-1.3, AHI-2.8). Accompanied by: Self / Same As Patient Allergies Milk Containing Products (Dairy) Allergy (Verified 03/09/25 13:07) oral tingling adhesive bandage Allergy (Unknown, Uncoded 02/08/25 09:23) Unknown HPI Comments Details: 54 year old female patient presents for a f/u of BRAYAN and RLS symptoms. BRAYAN Compliance Report 12/2024 to 02/2025 reviewed. Total use is 43/69 days and >4 hours is 46%, avg use is 3 hrs and 5min. Med Press 7.9 and Leaks 1.3cmH20 AHI is 2.8/hr. HST c/w severe brayan AHI supine 29 and O2 desaturation to 72% with mild nocturnal hypoxemia o2 <88% for 18min. Snoring 25%. Her sleep has improved since using her nasal pillows airfit N30, she is no longer snoring. She says the fatigue is about the same as she is moving to a new home, and feels exhausted, however she notices improvement with her sleep. She started paroxetine 10mg for anxiety and mood has now improved. She has acid reflux takes nexium, which helps with her symptoms along with recent endoscopy and dilation. She has vasomotor symptoms, +sweating, denies hot flashes, taking progesterone daily Slynd to improve symptoms, though continues to have headaches q other day, can last all day, she shuts her eyes, has 6/10 ethmoid sinus dull constant pain takes ibuprofen 400mg and due to stress. She has RLS, has heaviness, aching throbbing pain bilaterally in her heels, dull and aching need she has to move her feet then symptoms improve. Moderate Leg cramps in her calves. She does lift weights and exercises however never loses weight. [facility] Medical History Sleep apnea Ectopic Moderate obstructive sleep apnea Routine physical examination History of basal cell carcinoma Neuroforaminal stenosis of cervical spine Cervical stenosis of spinal canal IFG (impaired fasting glucose) Weakness of left hand Cervical radiculopathy Morning headache Snoring Non-restorative sleep Screening for malignant neoplasm of colon Dysphagia Surgical History History of surgery Hx of appendectomy Hx of colonoscopy History of esophagogastroduodenoscopy (EGD) Family History Mother Cancer of the liver and intrahepatic bile ducts Afib FHx: mental illness Father Substance abuse Alcohol abuse Cardiomyopathy Maternal Grandmother Skin cancer Son FHx: mental illness Social History Housing: House Alcohol intake: current Patient Tobacco Use Status: Former Tobacco user Years Smoked: college years e-Cigarette/Vaping Use: Never Used Second Hand Smoke Exposure: No service: No Current occupational status: employed 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 Current occupational exposures/hazards: No Cognitive needs: No Hearing needs: No Vision needs: No Physical Exam Vital Signs: Last Vital Signs Pulse 82 03/09/25 13:05 BP 120/76 03/09/25 13:05 Pulse Ox 98 03/09/25 13:05 Oxygen Delivery Method Room Air 03/09/25 13:05 BMI result Body Mass Index 28.7 Const General: cooperative, comfortable and no acute distress Nutritional Appearance: average body habitus Orientation/consciousness: patient oriented x3 HEENT Face and sinus: Yes face symmetric Teeth and gingiva: other (mallampti score is 3) Eyes Pupils: Equal, round and reactive pupils present Neck Neck: Yes full ROM Resp Effort & Inspection: normal respiratory effort and able to speak in complete sentences Neuro Other: reflexes Cervicalgia has pt General: patient oriented x3 and moves all extremities Cranial nerves: Yes Facial sensation intact/muscles of mastication intact, Yes Equal, round and reactive pupils present, Yes Normal accommodation reflex present, Yes Normal facial strength present, Yes Midline tongue present, Yes Ability to bilaterally rotate head present and Yes Ability to bilaterally elevate shoulders present Cognition (Neuro): normal cognition Gait exam (Neuro): Normal gait present Motor exam (neuro): 5/5 motor strength present throughout and Normal motor muscle tone present throughout Deep tendon reflexes (DTR's): Right triceps reflex intensity grade: 2+, Left triceps reflex intensity grade: 2+, Rt Biceps (C5, C6): 2+, Left biceps reflex intensity grade: 2+, Right brachioradialis reflex intensity grade: 2+, Left brachioradialis reflex intensity grade: 2+, Right patellar reflex intensity grade: 3+, Left patellar reflex intensity grade: 3+, Right ankle reflex intensity grade: 2+ and Left ankle reflex intensity grade: 2+ Coordination: [id number] test normal Psych Appearance: grossly normal Mental Status: mental status grossly normal Affect: normal affect Thought process: Normal thought process present Thought content: Normal thought content present Results Reviewed Results Reviewed: BRAYAN Compliance Report 12/2024 to 02/2025 reviewed. Total use is 43/69 days and >4 hours is 46%, avg use is 3 hrs and 5min. Med Press 7.9 and Leaks 1.3cmH20 AHI is 2.8/hr. HST c/w severe brayan AHI supine 29 and O2 desaturation to 72% with mild nocturnal hypoxemia o2 <88% for 18min. Snoring 25%. Assessment & Plan Assessment & Plan (1) Excessive daytime sleepiness: Comment: hst severe brayan Code(s): G47.19 - Other hypersomnia Category: Medical (2) Fatigue: Code(s): R53.83 - Other fatigue Category: Medical Qualifiers: Fatigue type: chronic, unspecified Qualified Code(s): R53.82 - Chronic fatigue, unspecified (3) Nocturnal hypoxemia: Code(s): G47.34 - Idiopathic sleep related nonobstructive alveolar hypoventilation Category: Medical (4) RLS (restless legs syndrome): Code(s): G25.81 - Restless legs syndrome Category: Medical (5) Frequent headaches: Code(s): R51.9 - Headache, unspecified Category: Medical Plan HST reviewed with AHI 29 and O2 desats to 71%, with moderate snoring, Continue cpap >4 hours daily as pt continues to have improved sleep, and fatigue is improving. Nocturnal Hypoxemia send for overnight monitoring and correction of hypoxemia. Headaches q other day, will start sumatriptan 25mg po prn headaches, may take one additional tablet in 2 hours if headache does not resolve. Do not exceed more than 4 tablets in a 24 hour period. RLS will monitor and start her on Gabapentin at next visit, if not improved, continue magnesium 200-400mg daily at bedtime, may hold for loose stools or take every other day as tolerable. May use Magnalife topical rls cream on lower extremities. Labs to reviewed with pt. Ferritin, B12, Homocysteine, MMA and TSH along with CBC and CMP, normal, will monitor RLS. Orders: Orders Overnight Pulse Oximetry Today G47.34 - Idiopathic sleep related nonobstructive alveolar hypoventilation, R51.9 - Headache, unspecified Patient Instructions: Sleep Hygiene provided: set a scheduled bedtime and wake time to help regulate the circadian rhythm and balance the release of pituitary hormones. Sleep in a dark room, temperatures below 68 degrees, and no devices n bed. Limit caffeinated products 6 hours prior to bed, and limit fluids 2-4 hours prior to bed. Gentle night yoga, diffusing essential oils, and playing soft music can be relaxing. Preventative migraine therapy CGRP antagonists: The G-pants Sumatriptan, Rizatriptan, Ellatriptan at the acute onset of headaches to avoid evolving into migraines. Triptans 1 tablets with onset of headache/migraine. If headache / migraine does not abort, may repeat one more tablet 2 hours later as needed. Do not exceed 4 tablets in a 24 hour period. Coding Level of Care Code Est Pt Level 4 (22375) Diagnoses Excessive daytime sleepiness G47.19 Chronic fatigue R53.82 Fatigue type: chronic, unspecified Nocturnal hypoxemia G47.34 RLS (restless legs syndrome) G25.81 Frequent headaches R51.9
--- OUTSIDE RECORDS SUMMARY | 2025-03-09 19:14 | XMS_ITS | Data Portability ---
Author Organization [facility], [facility] [address] Address [address] [place] [address] Assessment No assessment recorded. Plan of Treatment Reminders Order Date Submit Date Provider Last Modified By Organization Details Last Modified Time Details Appointments None recorded. Lab rapid flu (A+B) 2023 024 [email or web address] [facility], [address] [place], [address], 4 12:07:10 rapid strep group A, throat 2022 023 [email or web address] [facility], [address] [place], [address], 3 15:29:28 streptococc us group A, culture, throat 2022 023 [facility], [address] [place] [address], [place], [address], 3 12:06:34 Referral None recorded. Procedures None recorded. Surgeries None recorded. Imaging None recorded. Medication Orders Flonase Sensimist 27.5 mcg/actuati on nasal spray,suspe nsion 2023 024 [id number], [address] [place] [address], [id number], 4 12:07:19 albuterol sulfate HFA 90 mcg/actuati on aerosol inhaler 2023 024 [facility] #[id number], [address] [facility], [facility] [address], [place], [place], [id number], 4 12:07:19 amoxicillin 875 mg-potassiu m clavulanate 125 mg tablet 2023 024 [facility] #[id number], [address], [place], [place], [id number], 4 12:07:19 Diflucan 150 mg tablet 2023 024 [facility] #[id number], [address], [place], [place], [id number], 4 12:07:18 amoxicillin 875 mg-potassiu m clavulanate 125 mg tablet 2022 023 [facility] #[id number], [address], [place], [place], [id number], 4 11:21:34 Patient TargetsNo targets recorded. Patient Instructions Encounter Date Encounter Id Patient Instructions Last Modified By Organization Details Last Modified Time 12/15/2022 [id number] ear infection (otitis media): care instructions Not available 12/15/2022 15:30:17 sore throat: car e instructions Not available 12/15/2022 15:29:27 04/08/2024 [id number] Acute Sinusitis: Care Instructions [email or web address] Not available 04/08/2024 12:07:10 Reason for Referral None Reported. Results Created Date Observation Date Name Description Value Unit Range Abnormal Flag Note LastModifiedBy Organization Detail LastModifiedTime 12/16/19 23 12/18/2022 BETA STREP GP A CULTU RE beta strep gp A culture NEGATI VE Refer ence Range : Negat darlene Not Available [facility] ([facility]) [address] [facility], [place], [address], 12/18/2022 12:06:34 12/16/19 23 12/15/2022 rapid strep group A, throa t Unknown Analyte negati ve Not Available [facility] [address] [place] [address], [phone], 12/15/2022 15:13:07 04/08/20 24 04/08/2024 rapid flu (A+B) Unknown Analyte negati ve Not Available [facility] [address] [place] [address], [phone], 04/08/2024 11:24:14 04/08/20 24 04/08/2024 rapid flu (A+B) Unknown Analyte negati ve Not Available [facility] [address] [place] [address], [phone], 04/08/2024 11:24:14 04/08/20 24 04/08/2024 rapid flu (A+B) Unknown Analyte YES Not Available [id number] [place], [place] [address] [address] [place] [address], [phone], 04/08/2024 11:24:14 Result Notes None recorded. Problems No Known Problems Procedures Surgical History Date Name Laterality Status Provider Name and Address Organization Details Recorded Time 04/26/19 06 Appendectomy completed [facility] PA - [facility] 12/15/2022 15:12:36 repair of stress incontinence by suprapubic sling completed [facility] PA - [facility] 12/15/2022 15:12:27 removal of product of conception of ectopic completed [facility] PA - [facility] 12/15/2022 15:12:49 Imaging [...] Updated DateTime 3 162.56 cm 27.5 kg/m2 69574.7 8 g 99 % 99 % 77 [...] Updated DateTime 4 162.56 cm 30 kg/m2 14323.6 6 g 99 [degF] 87 /min 99 [...] ICD10 Code Diagnosis IMO Codes Diagnosis Note [id number] [facility] _[address] [phone] 08/06/2018 13:48:14 08/06/2018 16:00:50 [id number] Rosanna Murray [place] [address] [address] 12/15/2022 14:53:20 12/15/2022 15:37:32 Acute pharyngitis [id number] J02.9 Based on your Presentati on, Exam, [...] any questions or concerns. Acute otitis media 64891 03 H66.93 Acute bila teral otitis media [id number] H66.93 Based on your Presentati on, Exam, [...] if you have any questions or concerns. [id number] [place] [address] [address] 04/08/2024 10:38:01 04/08/2024 12:13:32 Acute sinusitis [id number] J01.90 Given Hx and Sx and PE [...] Member ID Guarantor Name 04/09/2024 1 [employer] [id number] Shital T Carlo [id number] Shital T Carlo 10/05/2024 1 [facility] Shital T Carlo [id number] Shital T Carlo 12/15/2022 1 [facility] [id number] Shital T Carol [id number] Shital T Carlo Notes Date Note Type [...] Rosanna Murray NP [address] [place], [address], PA - [facility] 12/15/2022 15:36:47 4 text/html Sinus Complaints UCReported by [id number] yo f c/o R side face/sinus pressurefever to [address] [place], [place] [address]ughbody aches took home covid test - negative [...] Barnes, DO [address] [place], [address], PA - [facility] 04/08/2024 12:07:31 OBGyn Episode No OBEpisode recorded.
== END 2025-03-09 13:40 | disposition home or self-care (01) ==
LOC: HO.HSMS 13:02
PROVIDERS: PCP Physician Assistant Medical; Visit Provider Physician Assistant Medical
DX: G47.19 Other hypersomnia (principal); R53.82 Chronic fatigue, unspecified; G47.34 Idiopathic sleep related nonobstructive alveolar hypoventilation; G25.81 Restless legs syndrome; R51.9 Headache, unspecified
CPT/HCPCS: 99214